=== PATIENT | male | born 1980 | race Caucasian/White ===

== ENCOUNTER 2020-06-06 17:48 | Emergency (ER) | payer OTHER, SELFPAY ==
[2020-06-06 17:49] VITALS: BP 149/101; PULSE 99; RESP 18; TEMP 37.1; O2SAT 98; BMI 38.0
--- NOTE | 2020-06-06 18:10 | CT_ITS ---
PROCEDURE: CT ABDOMEN PELVIS W CON CLINICAL INDICATION: LLQ pain, bleeding Left lower quadrant pain and bleeding COMPARISON: No exams were available for comparison TECHNIQUE: IV Contrast: 75ML OPTIRAY 350 Oral Contrast None Axial images obtained with sagittal and coronal reformats. All CT scans at the facility use one or more dose reduction, viz: automated exposure control, ma/kV adjustment per patient size (including targeted exams where dose is matched to indication, i.e. head), or iterative reconstruction technique. FINDINGS: LOWER THORAX: No acute finding ABDOMEN & PELVIS: There is diffuse fatty liver. There is some hyperdensity of the liver in the gallbladder fossa region and may be related to focal fatty sparing. Follow-up may confirm. The spleen, adrenal glands, pancreas, and kidneys show no acute finding. There is some cortical scarring involving the medial aspect of the left kidney. No intestinal obstruction or free air. No evidence of appendicitis. Scattered diverticula present without evidence of diverticulitis. There are few small Rebeca aortic lymph nodes. Small umbilical hernia is present containing fat. No acute bony findings.. IMPRESSION: 1. No acute abdominal or pelvic findings. 2. Hepatic steatosis with suspected areas of fatty sparing 3. Diverticulosis without diverticulitis Dictated by: Victoriano Huber MD 06/07/2020 06:09 Victoriano Huber MD in [place] 06/07/2020 06:09
--- NOTE | 2020-06-06 18:11 | HMH.EDGENADL ---
ED Disposition Clinical Impression: Diverticulosis GI bleed Qualifiers: GI bleed type/associated pathology: diverticulosis Qualified Code(s): K57.91 - Diverticulosis of intestine, part unspecified, without perforation or abscess with bleeding Disposition: Home, Self-Care Condition on Discharge: Good Instructions: DI for Diverticulosis Additional Instructions: You have been evaluated for blood per rectum, diagnosed with diverticulosis. Please take MiraLAX for soft bowel movements. Take docusate and senna if you have hard stools. Follow-up with new primary care doctor. Follow-up with gastroenterology for upper endoscopy and colonoscopy. Return to the emergency department if you have fevers, chills, nausea, vomiting, chest pain, palpitations, syncope. Referrals: PCP,Dyan [Primary Care Provider] - Silvia Hutchison APRN [Referring] - Time of Disposition: 19:27 - Critical Care Critical Care Time: No Attestation: On , the high probability of a clinically significant, sudden or life threatening deterioration of the following system(s) required my full and direct attention, intervention and personal management. The time I documented below is in addition to time spent performing reported procedures but includes the following listed in this critical care notation. Medical Decision Making - Medical Records Medical records reviewed: Yes: I reviewed the patient's medical records. - Obey Inquiry Pt receiving controlled substance: No Vital Signs: 06/06/20 17:49 Temperature 98.7 F Temperature Source Temporal Artery Scan Pulse Rate [Right] 99 H Respiratory Rate 18 Blood Pressure [Right Arm] 149/101 H Blood Pressure Mean [Right Arm] 117 02 Sat by Pulse Oximetry 98 - Lab Data Lab Results 06/06/20 18:10: Stool Occult Blood Positive A 06/06/20 18:15: WBC 8.7, RBC 5.83, Hgb 17.3, Hct 51.8, MCV 88.9, MCH 29.6, MCHC 33.3, RDW 13.7, Plt Count 244, MPV 8.4, Neut % (Auto) 58.5, Lymph % (Auto) 31.8, [place] % (Auto) 7.3, Eos % (Auto) 1.9, Baso % (Auto) 0.6, Neut # (Auto) 5.1, Lymph # (Auto) 2.8, [place] # (Auto) 0.6, Eos # (Auto) 0.2, Baso # (Auto) 0.1 06/06/20 18:15: Sodium 140, Potassium 4.2, Chloride 103, Carbon Dioxide 29, Anion Gap 12.2, BUN 12, Creatinine 0.70, Estimated Creat Clear 255, Estimated GFR 126, Est GFR ( Amer) 152, Glucose 113 H, Calcium 9.6, Total Bilirubin 0.6, AST 70 H, ALT 140 H, Alkaline Phosphatase 105, Total Protein 8.4 H, Albumin 4.7, Globulin 3.7 H, Albumin/Globulin Ratio 1.3 Result diagrams: 06/06/20 18:15 06/06/20 18:15 Orders (Tests/Meds): ED MEDICATIONS Discontinued Medications Generic Name Dose Route Start Last Admin Trade Name Rashadq PRN Reason Stop Dose Admin Ioversol 75 ml 06/06/20 19:03 06/06/20 19:05 Ioversol-350 (74%) 100ml Vial IV 06/06/20 19:04 75 ml ONCE ONE Administration Protocol Sodium Chloride 10 ml 06/06/20 19:03 06/06/20 19:05 Sodium Chloride 0.9% 10ml Syr (Rad Only) IV 06/06/20 19:04 10 ml ONCE ONE Administration ORDERS Category Date Time Status CT abdomen pelvis w con Stat Cat Scan 06/06/20 18:10 Taken Medical Decision Narrative: In summary this is a 40-year-old male presenting to the emergency department with rectal bleeding. Patient clinically stable on arrival. Slightly hypertensive and tachycardic, says that he is very nervous. Concern for internal hemorrhoid, external hemorrhoid, diverticular bleed, mass, ulcer. Will obtain CBC, CMP, Hemoccult, CT scan of the abdomen and pelvis. Laboratory results are generally unremarkable. No significant anemia. BUN is not elevated, doubt significant hemorrhage. CT scan of the abdomen and pelvis shows diverticulosis without evidence of diverticulitis. Also shows fatty liver. No mass or other surgical evidence of bleed. In the emergency department patient has not had a bowel movement or alberto blood per rectum. Counseled on laxatives and stool softeners. Given return precautio
[2020-06-06 18:23] LABS: Basophils # 0.1 K/mm3 (0-0.2); Basophils % 0.6 % (0.1-2.0); Eosinophils # 0.2 K/mm3 (0.0-0.4); Eosinophils % 1.9 % (0.1-12.0); Hematocrit 51.8 % (42.0-52.0); Hemoglobin 17.3 g/dL (14.1-18.0); Lymphocytes # 2.8 K/mm3 (0.7-4.5); Lymphocytes % 31.8 % (10-50); Mean Corpuscular HGB Conc 33.3 g/dL (31.8-35.4); Mean Corpuscular Hemoglobin 29.6 pg (27.0-31.2); Mean Corpuscular Volume 88.9 fl (80-94); Mean Platelet Volume 8.4 fl (7.4-10.4); Monocytes # 0.6 K/mm3 (0.1-1.0); Monocytes % 7.3 % (1.7-9.3); Neutrophils # 5.1 K/mm3 (1.8-7.8); Neutrophils % 58.5 % (37.0-80.0); Platelet Count 244 K/mm3 (142-424); Red Blood Count 5.83 M/mm3 (4.60-6.20); Red Cell Distribution Width 13.7 % (11.5-17.5); White Blood Count 8.7 K/mm3 (4.8-10.8)
[2020-06-06 18:26] LABS: Occult Blood,Stool Positive (Negative)
[2020-06-06 18:28] LABS: Chloride 103 mmol/L (98-107); Potassium 4.2 mmoL/L (3.5-5.1); Sodium 140 mmol/L (136-145)
[2020-06-06 18:31] LABS: Alanine Aminotransferase 140 U/L (12-78); Albumin Level 4.7 g/dl (3.5-5.0); Albumin/Globulin Ratio 1.3 (1.1-1.8); Alkaline Phosphatase 105 U/L (38-126); Anion Gap 12.2 mEq/L (5-15); Aspartate Amino Transferase 70 U/L (17-59); Bilirubin,Total 0.6 mg/dl (0.2-1.3); Blood Urea Nitrogen 12 mg/dl (9-20); Carbon Dioxide 29 mmol/L (22.0-30.0); Creatinine Clearance Estimated 255 mL/min (50-200); Estimated Glomerular Filt Rate 126 ml/min (>60); GFR (African American) 152 ML/MIN (>60); Globulin 3.7 g/dL (1.3-3.2); Total Protein,Serum 8.4 g/dl (6.3-8.2)
[2020-06-06 18:32] LABS: Calcium 9.6 mg/dl (8.4-10.2); Glucose 113 mg/dl (74-100)
[2020-06-06 19:37] VITALS: BP 146/86; PULSE 86; RESP 16; TEMP 37.1; O2SAT 98
== END 2020-06-06 19:41 | disposition home or self-care (01) ==
PROVIDERS: Emergency Provider Emergency Medicine
DX: K57.91 Diverticulosis of intestine, part unspecified, without perforation or abscess with bleeding (principal)
CPT/HCPCS: 74177; 80053; 82272; 85025; 99283; G0328; Q9967

== ENCOUNTER 2022-07-31 21:00 | Emergency (ER) | payer OTHER, SELFPAY ==
[2022-07-31 21:13] VITALS: BP 158/85; PULSE 87; RESP 16; TEMP 36.7; O2SAT 97; BMI 39.3
--- NOTE | 2022-07-31 22:06 | XR_ITS ---
PROCEDURE INFORMATION: Exam: XR Left Toe(s) Exam date and time: 07/31/2022 10:44 PM Age: 42 years old Clinical indication: Pain; Toes; Patient HX: Dropped skillet of 1st left toe; Additional info: Skillet vs toe TECHNIQUE: Imaging protocol: Radiologic exam of the Left toes. Views: Minimum 2 views. COMPARISON: No relevant prior studies available. FINDINGS: Bones/joints: No acute fracture. No dislocation. Soft tissues: Unremarkable. IMPRESSION: No fracture. If pain persists, suggest splinting and follow up radiographs in 7-10 days.
--- NOTE | 2022-07-31 22:30 | PC.NURSE ---
observed dr kebede during cauterization
--- NOTE | 2022-07-31 22:51 | HMH.EDLOEX ---
Discharge Plan Disposition Chief Complaint: Extremity Injury, Lower Prescriptions Prescriptions: No Action No Known Home Medications Referrals Follow up/Referrals: Provider,Referral, MD [Primary Care Provider] - See instructions Clinical Impressions Clinical Impression: Toe injury, Subungual hematoma Instructions Patient Instructions: Toe Sprain Discharge ED Provider: Eugene Candelario Lower Extremity Injury HPI General Chief Complaint: Extremity Injury, Lower Stated Complaint: AO 07/31 @1800 dropped skillet on left foot Time Seen by Provider: 07/31/22 22:51 Mode of Arrival: Family Vehicle Source of Information: Patient and Medical Record Limitations: No Limitations Description of Symptoms (Recalled from ER Triage Doc. by RN): Patient states he accidentally knocked his large cast iron skillet off the stove causing it to fall approx 3 feet to the floor, landing on his great toe on the left side; immediate discoloration and pain as a result. PMH: denies. PSH: denies. NKA. VSS. History of Present Illness HPI Narrative: acute lt great toe injury as skillet landed on toe this pm MD complaint: foot injury Onset (ago): hour(s) Injury: Left: foot Type of Injury: blunt Place: home Severity: moderate Exacerbating factors: weight bearing and palpation Context: direct blow Associated symptoms: swelling and able to partially bear weight Other symptoms: none Related Data Home Medications Medication Instructions Recorded Confirmed No Known Home Medications 07/31/22 07/31/22 Allergies Allergy/AdvReac Type Severity Reaction Status Date / Time No Known Allergies Allergy Verified 06/06/20 18:00 [facility] Disclaimer: The information contained in this section may have been updated after the patient was seen, as this information can be updated by other users. Social History Smoking Status: Smoker, status unknown alcohol intake: never current occupational status: employed Travel in the last 8 weeks: None ROS Obtained: Yes All systems reviewed & no additional complaints except as documented Physical Exam General General appearance: alert Head Head exam: normocephalic Eye Eye exam: Present PERRL and EOMI ENT ENT exam: Present mucous membranes moist Neck Neck exam: Present trachea midline Respiratory Respiratory exam: Absent respiratory distress Cardiovascular Cardiovascular exam: Present regular rate Expanded Lower Extremity Exam Left: Foot/toe exam: Present tenderness, swelling and subungual hematoma Neurovascular/Tendon exam: Absent pulse deficit Neurological Exam Neurological exam: Present alert, oriented X3 and CN II-XII intact Psychiatric Psychiatric exam: Present normal affect Skin Skin exam: Absent rash Medical Decision Making Medical Records Medical records reviewed: Yes I reviewed the patient's medical records. [place] Inquiry Pt receiving controlled substance: No Vital Signs: 07/31/22 21:13 Temperature 98.0 F Temperature Source Oral Pulse Rate [Right Brachial] 87 Respiratory Rate 16 Blood Pressure [Right Arm] 158/85 H Blood Pressure Mean [Right Arm] 109 Blood Pressure Source [Right Arm] Automatic Cuff Blood Pressure Position [Right Arm] Sitting 02 Sat by Pulse Oximetry 97 Oxygen Delivery Method Room Air Lab Data Lab results reviewed: Yes I reviewed the patient's lab results. Orders (Tests/Meds): ORDERS Category Date Time Status XR toe LT min 2V Stat Exams 07/31/22 22:06 Completed Radiology Data #1: Image(s): Foot/Toes Image Reviewed: Yes I have reviewed radiologist's interpretation Preliminary Findings: No Fracture Seen Medical Decision Narrative: pt with acute injury lt great toe with subungual hematoma - Procedures Nerve Block Nerve Block 1: Time out performed: Yes Local Anesthetic: lidocaine 1% Amount of anesthesia used (mL): 8 Side: Left Nerve Blocks: digit
[2022-07-31 23:51] VITALS: BP 137/87; PULSE 80; RESP 16; TEMP 36.7; O2SAT 97
== END 2022-07-31 23:53 | disposition home or self-care (01) ==
PROVIDERS: Emergency Provider Emergency Medicine
DX: S90.212A Contusion of left great toe with damage to nail, initial encounter (principal); S93.602A Unspecified sprain of left foot, initial encounter; W20.8XXA Other cause of strike by thrown, projected or falling object, initial encounter; Y92.9 Unspecified place or not applicable
CPT/HCPCS: 10140; 73660; 99283

== ENCOUNTER 2023-05-13 15:51 | Emergency (ER) | payer OTHER, SELFPAY ==
[2023-05-13 15:54] VITALS: BP 158/78; PULSE 88; RESP 18; TEMP 36.7; O2SAT 97; BMI 38.0
--- NOTE | 2023-05-13 16:03 | PC.NURSE ---
covid/flu swab sent to lab
[2023-05-13 16:05] LABS: Coronavirus 19, PCR Not Detected (NotDetected); Influenza A, PCR Not Detected (NotDetected); Influenza B, PCR Not Detected (NotDetected)
--- NOTE | 2023-05-13 16:09 | CT_ITS ---
FINAL REPORT TECHNIQUE: Thin section axial images were obtained from skull base to vertex without contrast. Coronal reconstruction images were obtained from the axial data. Exam was performed using dose reduction technique. CLINICAL HISTORY: headache worse in AM, frontal COMPARISON: None FINDINGS: There is no mass effect or midline shift. There is no hydrocephalus. There is no intracranial hemorrhage. The posterior fossa is without acute abnormality. The basilar cisterns are preserved. The soft tissues are without acute abnormality. No acute osseous abnormality is identified. IMPRESSION: No acute intracranial abnormality. Reviewed, Interpreted and Dictated by Irene Green MD Transcribed by Tigist Arzate Authenticated and . [facility]
--- NOTE | 2023-05-13 16:10 | HMH.EDGENADL ---
Discharge Plan Disposition Patient Disposition: Home, Self-Care Chief Complaint: Weakness Prescriptions Prescriptions: No Action No Known Home Medications Referrals Follow up/Referrals: Provider,Ratna, [Primary Care Provider] - See instructions Jarrod Hutchinson DO [Staff Physician] - See instructions Activity Restrictions/Add. Instructions Additional Instructions/Restrictions: At this time was felt you are safe to be discharged home. If new or worsening symptoms please do not hesitate to return the emergency department. Please call Dr. Hutchinson to establish care as soon as you are able. Clinical Impressions Clinical Impression: Myalgia, Elevated CK, Headache Discharge ED Provider: Michael Little General Adult HPI General Chief complaint: Weakness Stated complaint: dizzy, body aches, chills/fever, weakness Time Seen by Provider: 05/13/23 16:02 History of Present Illness HPI narrative: Patient is a 43-year-old male with no chronic medical conditions who presents emergency department for evaluation of multiple complaints. Approximately 4 weeks ago patient contracted COVID for which he experienced diffuse myalgias and weakness. Symptoms largely resolved and subsequently over the last 2 weeks patient has had significant global weakness and body aches limiting his activities of daily living. He has a frontal headache that is worse in the morning and dissipates throughout the day without intervention. No vision changes, no chest pain, no other acute complaints at this time. Related Data Home Medications Medication Instructions Recorded Confirmed No Known Home Medications 07/31/22 07/31/22 Allergies Allergy/AdvReac Type Severity Reaction Status Date / Time No Known Allergies Allergy Verified 06/06/20 18:00 [facility] Disclaimer: The information contained in this section may have been updated after the patient was seen, as this information can be updated by other users. Social History (Updated 07/31/22 @ 23:42 by Eugene Candelario MD) Smoking Status: Never smoker alcohol intake: never current occupational status: employed Travel in the last 8 weeks: None ROS Obtained: Yes Systems reviewed as appropriate & no additional complaints except as documented Physical Exam General General appearance: alert and in no apparent distress Head Head exam: atraumatic and normocephalic Eye Eye exam: Present PERRL and EOMI ENT ENT exam: Present mucous membranes moist Neck Neck exam: Present normal inspection Chest Chest inspection: Present normal inspection and symmetric chest wall rise Respiratory Respiratory exam: Present normal lung sounds bilaterally; Absent respiratory distress Cardiovascular Cardiovascular exam: Present regular rate, normal rhythm and other (No pitting edema bilateral lower extremities) Abdominal Exam Abdominal exam: Present soft; Absent tenderness Extremities Exam Extremities exam: Present normal inspection Neurological Exam Neurological exam: Present alert and CN II-XII intact; Absent motor sensory deficit Psychiatric Psychiatric exam: Present normal affect Skin Skin exam: Present warm and dry Medical Decision Making Obey Inquiry Pt receiving controlled substance: No Vital Signs: 05/13/23 15:54 05/13/23 16:31 05/13/23 17:01 Temperature 98.1 F Temperature Source Oral Pulse Rate 92 H 88 Pulse Rate [Right Radial] 88 Respiratory Rate 18 Blood Pressure 150/84 H 141/81 H Blood Pressure [Right Arm] 158/78 H Blood Pressure Mean [Right Arm] 104 02 Sat by Pulse Oximetry 97 97 94 L Oxygen Delivery Method Room Air Room Air Room Air Lab Data Lab Results 05/13/23 15:58: SARS-CoV-2 (PCR) Not detected, Influenza A Untype (PCR) Not detected, Influenza Type B (PCR) Not detected 05/13/23 16:30: WBC 7.0, RBC 5.58, Hgb 16.3, Hct 49.8, MCV 89.1, MCH 29.2, MCHC 32.8, RDW 13.7, Plt Count 220, MPV 8.7, Neut % (Auto) 57.5, Lymph % (Auto) 32.2
--- NOTE | 2023-05-13 16:12 | XR_ITS ---
FINAL REPORT CLINICAL HISTORY: weakness, soa COMPARISON: None FINDINGS: A portable view of the chest was obtained. Cardiac and mediastinal silhouettes are within normal limits. The lungs are clear. There is no pleural effusion or pneumothorax. IMPRESSION: No acute process on this portable exam. Reviewed, Interpreted and Dictated by Irene Green MD Transcribed by Tigist Arzate Authenticated and [facility]
[2023-05-13 16:31] VITALS: BP 150/84; PULSE 92; O2SAT 97
--- NOTE | 2023-05-13 16:35 | ECG_ITS ---
APPROVED REPORT Exam: Resting ECG HR:82 bpm ECG Measurements Heart Rate 82 AXES DE 189 P 61 QRSd 104 QRS 52 QT 347 T 18 QTc 385 Conclusion SINUS RHYTHM PROBABLE INFERIOR MYOCARDIAL INFARCTION , PROBABLY OLD [35 ms Q WAVE IN II/aVF] ABNORMAL ECG UNCONFIRMED REPORT Electronically signed by : Lg Gonzalez MD 05/14/2023 17:19:04
[2023-05-13 16:44] LABS: Basophils % 0.5 % (0.1-2.0); Eosinophils # 0.2 K/mm3 (0.0-0.4); Eosinophils % 2.9 % (0.1-12.0); Hematocrit 49.8 % (42.0-52.0); Hemoglobin 16.3 g/dL (14.1-18.0); Lymphocytes # 2.3 K/mm3 (0.7-4.5); Lymphocytes % 32.2 % (10-50); Mean Corpuscular HGB Conc 32.8 g/dL (31.8-35.4); Mean Corpuscular Hemoglobin 29.2 pg (27.0-31.2); Mean Corpuscular Volume 89.1 fl (80-94); Mean Platelet Volume 8.7 fl (7.4-10.4); Monocytes # 0.5 K/mm3 (0.1-1.0); Neutrophils % 57.5 % (37.0-80.0); Platelet Count 220 K/mm3 (142-424); Red Blood Count 5.58 M/mm3 (4.60-6.20); Red Cell Distribution Width 13.7 % (11.5-17.5)
[2023-05-13 16:45] LABS: Alanine Aminotransferase 74 U/L (12-78); Albumin Level 4.2 g/dl (3.5-5.0); Albumin/Globulin Ratio 1.2 (1.1-1.8); Alkaline Phosphatase 89 U/L (38-126); Anion Gap 12.3 mEq/L (5-15); Aspartate Amino Transferase 50 U/L (17-59); Bilirubin,Total 0.5 mg/dl (0.2-1.3); Blood Urea Nitrogen 19 mg/dl (9-20); Calcium 9.3 mg/dl (8.4-10.2); Carbon Dioxide 29 mmol/L (22.0-30.0); Chloride 104 mmol/L (98-107); Creatine Kinase 225 U/L (55-170); Creatinine Clearance Estimated 192 mL/min (50-200); Estimated Glomerular Filt Rate 93 ml/min (>60); GFR (African American) 112 ML/MIN (>60); Globulin 3.5 g/dL (1.3-3.2); Glucose 127 mg/dl (74-100); Potassium 4.3 mmoL/L (3.5-5.1); Sodium 141 mmol/L (136-145); Total Protein,Serum 7.7 g/dl (6.3-8.2)
[2023-05-13 17:01] VITALS: BP 141/81; PULSE 88; O2SAT 94
[2023-05-13 17:16] LABS: Thyroid Stimulating Hormone 1.41 uIU/mL (0.465-4.68)
[2023-05-13 18:24] VITALS: BP 151/87; PULSE 84; RESP 18; TEMP 36.6; O2SAT 95
== END 2023-05-13 18:26 | disposition home or self-care (01) ==
PROVIDERS: Emergency Provider Emergency Medicine
DX: R51.9 Headache, unspecified (principal); R53.1 Weakness
CPT/HCPCS: 70450; 71045; 80053; 82550; 83735; 84443; 85025; 87636; 93005; 96374; 99285; J0131

== ENCOUNTER → 2023-06-11 12:44 | Outpatient (CLI) | payer OTHER, SELFPAY ==
[2023-06-11 13:45] VITALS: PULSE 81; PULSE 83
[2023-06-11 14:49] LABS: Lactic Acid 1.5 mmol/L (0.7-2.1)
[2023-06-11 15:17] LABS: Erythrocyte Sedimentation Rate 6 mm/hr (0-15)
[2023-06-11 15:23] LABS: Chol/HDL Ratio 8.9 (1-3.5); Cholesterol 196 mg/dl (140-200); HDL Cholesterol 22 mg/dl (40-60); Triglycerides 322 mg/dl (30-150); VLDL Cholesterol 64 mg/dL (0-40)
[2023-06-11 15:35] LABS: Direct LDL Cholesterol 124.89 mg/dL (100-129)
[2023-06-11 15:55] LABS: Thyroid Stimulating Hormone 0.81 uIU/mL (0.465-4.68)
[2023-06-11 17:25] LABS: D-Dimer 0.62 ug/mL (0.0-0.5)
== END ==
PROVIDERS: PCP Nurse Practitioner Family; Visit Provider Nurse Practitioner Family
DX: G93.32 Myalgic encephalomyelitis/chronic fatigue syndrome (principal); R06.02 Shortness of breath; U09.9 Post COVID-19 condition, unspecified; M79.10 Myalgia, unspecified site; R03.0 Elevated blood-pressure reading, without diagnosis of hypertension
CPT/HCPCS: 36415; 80061; 83605; 84443; 85378; 85651; 86140; 94060; 94640

== ENCOUNTER 2023-06-12 17:20 | Emergency (ER) | payer OTHER, SELFPAY ==
[2023-06-12] VITALS (8 sets, daily range): BP systolic 135–165; BP diastolic 79–100; PULSE 79–87; RESP 17–18; TEMP 37; O2SAT 96–98; BMI 40.0
--- NOTE | 2023-06-12 18:32 | CT_ITS ---
PROCEDURE INFORMATION: Exam: CTA Chest With Contrast Exam date and time: 06/12/2023 7:07 PM Age: 43 years old Clinical indication: Dyspnea; Additional info: Dyspnea, elevated dimer from yesterday TECHNIQUE: Imaging protocol: Computed tomographic angiography of the chest with contrast. Exam focused on the arteries. 3D rendering (Not supervised by radiologist): MIP and/or 3D reconstructed images were created by the technologist. Radiation optimization: All CT scans at this facility use at least one of these dose optimization techniques: automated exposure control; mA and/or kV adjustment per patient size (includes targeted exams where dose is matched to clinical indication); or iterative reconstruction. Contrast material: ISOVUE; Contrast volume: 70 ml; Contrast route: INTRAVENOUS (IV); REPORTING DATA: Count of CT and Cardiac NM exams in prior 12 months: This patient has received [address] and 0 known cardiac nuclear medicine studies in the 12 months prior to the current study. COMPARISON: CR XR CHEST PORTABLE 05/13/2023 4:34 PM FINDINGS: Pulmonary arteries: Normal. No pulmonary emboli. Aorta: Unremarkable. No aortic aneurysm. No aortic dissection. Lungs: Mild dependent atelectasis in the lungs. No consolidation. Calcified granuloma at the left lung apex. Pleural spaces: Unremarkable. No pneumothorax. No pleural effusion. Heart: Unremarkable. No cardiomegaly. No pericardial effusion. Lymph nodes: Unremarkable. No enlarged lymph nodes. Liver: Mild hepatic steatosis. Bones/joints: Mild thoracic spine degenerative change. Soft tissues: Unremarkable. IMPRESSION: 1. No pulmonary embolism. 2. No acute findings.
--- NOTE | 2023-06-12 18:35 | HMH.EDGENADL ---
Discharge Plan Disposition Patient Disposition: Home, Self-Care Prescriptions Prescriptions: No Action multivitamin Tablet 1 tab PO DAILY fluoxetine 40 mg capsule 40 mg PO DAILY vitamin B complex [B Complex-Vitamin B12] Tablet 1 tab PO DAILY fluoxetine 20 mg capsule 20 mg PO DAILY Qty: 30 2RF Referrals Follow up/Referrals: Lissett Meadows APRN [Primary Care Provider] - See instructions Jacey Keyes MD [Staff Physician] - See instructions (for a sleep study ) Jarrod Rivers MD [Staff Physician] - See instructions Activity Restrictions/Add. Instructions Additional Instructions/Restrictions: No acute cardiopulmonary emergency noted please follow-up with Dr. Rivers for further cardiovascular evaluation as well as with Dr. Keyes for an outpatient sleep study and continue to discuss your chronic fatigue with your primary care physician. Clinical Impressions Clinical Impression: Chronic fatigue, Exertional dyspnea, Obesity Discharge ED Provider: Jose Aquino General Adult HPI General Chief complaint: Recheck/Abnormal Lab/Rx Stated complaint: sent by phy, critical labs and SOA Time Seen by Provider: 06/12/23 18:08 Mode of Arrival: Ambulatory Source of Information: Patient Limitations: No Limitations Description of Symptoms (Recalled from ER Triage Doc. by RN): Patient states he had a routine follow up appointment with his PCP yesterday and they fish bloodwork. States he got a phone call today stating that his ddimer was elevated and that he needed to come to the er for a ct scan of his chest. History of Present Illness HPI narrative: Patient is a 43-year-old male presenting with chronic fatigue over the last several months. He states that he was diagnosed with COVID along with everyone else in his household at the end of March but has not improved. His description of not improving includes dyspnea on exertion and just severe significant fatigue. 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 States that anxiety and stress have not worsened significantly as of late. Denies any ongoing fevers or chills. Denies any lower extremity swelling hemoptysis history DVT or PE or any dyspnea outside of any exertion including right now. No significant chest pain right now. Patient has not had a comprehensive cardiac evaluation in the past. The reason he comes to the emergency department today with the subacute symptoms is that he was at his primary care doctor yesterday ordered a D-dimer and it was elevated at 0.6 and they sent him to the emergency department for a CT PE. Related Data Home Medications Medication Instructions Recorded Confirmed fluoxetine 40 mg capsule 40 mg PO DAILY 06/02/23 06/02/23 multivitamin 1 tab PO DAILY 06/02/23 06/02/23 vitamin B complex (B 1 tab PO DAILY 06/02/23 06/02/23 Complex-Vitamin B12 tablet) Previous Rx's Medication Instructions Recorded fluoxetine 20 mg capsule 20 mg PO DAILY #30 caps 06/02/23 Allergies Allergy/AdvReac Type Severity Reaction Status Date / Time No Known Allergies Allergy Verified 06/02/23 11:35 [facility] Disclaimer: The information contained in this section may have been updated after the patient was seen, as this information can be updated by other users. Medical History (Updated 06/12/23 @ 18:40 by Jose Aquino MD) Gastric ulcer Social History (Updated 06/02/23 @ 11:39 by Kristopher Amezcua LPN) Smoking Status: Never smoker alcohol intake: current substance use type: denies use current occupational status: employed Travel in the last 8 weeks: I
[2023-06-12 18:39] LABS: Basophils % 0.4 % (0.1-2.0); Eosinophils # 0.2 K/mm3 (0.0-0.4); Eosinophils % 2.3 % (0.1-12.0); Hematocrit 46.3 % (42.0-52.0); Hemoglobin 16.4 g/dL (14.1-18.0); Lymphocytes % 28.7 % (10-50); Mean Corpuscular HGB Conc 35.4 g/dL (31.8-35.4); Mean Corpuscular Hemoglobin 31.3 pg (27.0-31.2); Mean Corpuscular Volume 88.6 fl (80-94); Mean Platelet Volume 8.8 fl (7.4-10.4); Monocytes # 0.4 K/mm3 (0.1-1.0); Neutrophils # 4.4 K/mm3 (1.8-7.8); Neutrophils % 62.6 % (37.0-80.0); Platelet Count 210 K/mm3 (142-424); Red Blood Count 5.22 M/mm3 (4.60-6.20); Red Cell Distribution Width 13.8 % (11.5-17.5)
[2023-06-12 18:42] LABS: Chloride 101 mmol/L (98-107); Potassium 3.9 mmoL/L (3.5-5.1); Sodium 138 mmol/L (136-145)
[2023-06-12 18:44] LABS: Alanine Aminotransferase 79 U/L (12-78); Alkaline Phosphatase 109 U/L (38-126); Aspartate Amino Transferase 57 U/L (17-59); Bilirubin,Total 0.3 mg/dl (0.2-1.3); Blood Urea Nitrogen 16 mg/dl (9-20); Creatinine Clearance Estimated 260 mL/min (50-200); Estimated Glomerular Filt Rate 124 ml/min (>60); GFR (African American) 150 ML/MIN (>60)
[2023-06-12 18:45] LABS: Albumin Level 4.5 g/dl (3.5-5.0); Albumin/Globulin Ratio 1.4 (1.1-1.8); Anion Gap 9.9 mEq/L (5-15); Carbon Dioxide 31 mmol/L (22.0-30.0); Globulin 3.3 g/dL (1.3-3.2); Glucose 122 mg/dl (74-100); Magnesium 1.9 mg/dl (1.6-2.3); Phosphorous 3.6 mg/dl (2.5-4.5); Total Protein,Serum 7.8 g/dl (6.3-8.2)
--- NOTE | 2023-06-12 18:58 | ECG_ITS ---
APPROVED REPORT Exam: Resting ECG HR:78 bpm ECG Measurements Heart Rate 78 AXES VT 187 P 44 QRSd 100 QRS 39 QT 356 T 35 QTc 389 Conclusion SINUS RHYTHM NORMAL ECG UNCONFIRMED REPORT Electronically signed by : Lg Gonzalez MD 06/13/2023 18:58:51
[2023-06-12 19:10] LABS: Troponin I < 0.01 ng/ml (0.00-0.034)
[2023-06-12 19:16] LABS: Thyroid Stimulating Hormone 3.12 uIU/mL (0.465-4.68)
--- NOTE | 2023-06-12 20:20 | PC.NURSE ---
Dr. Aquino talking with patient
== END 2023-06-12 20:31 | disposition home or self-care (01) ==
PROVIDERS: Emergency Provider Student in an Organized Health Care Education/Training Program; PCP Nurse Practitioner Family
DX: R53.82 Chronic fatigue, unspecified (principal); R06.09 Other forms of dyspnea; E66.9 Obesity, unspecified
CPT/HCPCS: 71275; 80053; 83735; 83880; 84100; 84443; 84484; 85025; 93005; 96360; 99284; Q9967

== ENCOUNTER → 2023-06-15 15:33 | Outpatient (CLI) | payer OTHER, SELFPAY | PROVIDERS: PCP Nurse Practitioner Family; Visit Provider Internal Medicine | DX: R03.0 Elevated blood-pressure reading, without diagnosis of hypertension (principal); R06.09 Other forms of dyspnea; R94.31 Abnormal electrocardiogram [ECG] [EKG] | CPT/HCPCS: 93270 ==

== ENCOUNTER 2023-06-25 12:07 | Outpatient (CLI) | payer OTHER, SELFPAY ==
[2023-06-25] VITALS (10 sets, daily range): BP systolic 119–180; BP diastolic 66–94; PULSE 60–80; RESP 16–18; TEMP 36.3–36.8; O2SAT 94–100; BMI 40.0
--- NOTE | 2023-06-25 12:11 | CT_ITS ---
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 A noncontrast coronary calcium scan was performed. A CT attenuation threshold of 130 Hounsfield units (HU) was used for the detection of calcium in contiguous voxels of 1 sq mm in area to be counted as individual lesions. Bolus tracking in the ascending aorta with a threshold of 180 HU was performed. Immediately afterwards, ECG synchronized cardiac CT was then performed from the cardiac base to apex using retrospective gating with ECG tube current modulation. A total of 85 mL of Isovue 370 mg/mL contrast medium was administered at 5 mL/sec followed by a saline flush using a biphasic injection protocol. A tube voltage of 120 KVp was used. The patient received the following medications prior to the cardiac CT. 100 mg of oral metoprolol 30 mg of intravenous metoprolol 0.8 mg of sublingual nitroglycerin The average heart rate at the time of acquisition was 60 bpm and regular. Image Reconstruction Transaxial images were reconstructed at 0.67 mm slide thickness. Data was reviewed interactively on an advanced workstation capable of 2 and 3-dimensional displays in all conventional reconstruction formats, including multiplanar reformations, maximum intensity projections, curved multiplanar reformations, and volume rendered reconstructions. When applicable, selected routine images describing the relevant coronary anatomy and pathology were saved and sent to PACS. Complications None Technical Quality Overall image quality was good. Coronary artery opacification was adequate. Total DLP (Dose-Length Product) is 1447.7 mGy-cm. The reported value represents the total of one or more individual components during the CT acquisition of this date and at this time, and as such, the same value may appear in more than one CT report depending on the interpreting/reporting physicians. COMPARISON None FINDINGS CT Coronary Calcium Scoring LMA (Left Main Artery) = 0 LAD (Left Anterior Descending) = 0 LCX (Left Coronary Circumflex) = 0 RCA (Right Coronary Artery) = 0 Total Calcium Score = 0 using the AJ-130 method. The interpretation of the calcium heart score is based on the following continuum*: 0 = no calcified plaque detected (risk of coronary artery disease is very low ??? less than 5%) 1-10 = calcium detected in extremely minimal levels (risk of coronary diseases is still low ??? less than 10%) 11-100 = mild levels of plaque detected with certainty (mild or minimal narrowing of heart arteries is likely) 101-400 = definite,at least moderate levels of plaque detected (relatively high risk of a heart attack within 3-5 years) >401-999 = extensive levels of plaque detected (high risk of heart attack, high levels of vascular disease are present, high likelihood of at least one significant coronary narrowing) *The calcium heart score quantifies the burden of coronary calcification/plaque in the coronary arteries. The calcium heart score is not able to evaluate the presence or burden of non-calcified (i.e. soft) plaque. There is no identifiable calcification in the aortic valve, mitral annulus or mitral valve, pericardium, or myocardium. Coronary CT Angiography Coronaries have normal origin and proximal course. The coronary arterial system is right dominant. Note: Stenosis is reported as maximum percentage diameter stenosis. Quantitative Stenosis Grading: Left Main (LM): The left main originates normally from the left sinus of Valsalva. 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 The LM is patent with
--- NOTE | 2023-06-25 14:25 | PC.NURSE ---
Pharmacy does not have Ivabradine that was ordered by Dr Davidson. Called office to update, MD to call when out of pt room.
--- NOTE | 2023-06-25 14:52 | PC.NURSE ---
Donna Josue RN spoke with Jordan AGGARWAL and was given go ahead on CTA even though HR is still upper 60's. Pt taken to CT per W/C.
== END 2023-06-25 15:55 | disposition home or self-care (01) ==
PROVIDERS: PCP Nurse Practitioner Family; Visit Provider Internal Medicine
DX: R94.31 Abnormal electrocardiogram [ECG] [EKG] (principal); R06.09 Other forms of dyspnea; R03.0 Elevated blood-pressure reading, without diagnosis of hypertension
CPT/HCPCS: 75571; 75574; Q9967

== ENCOUNTER → 2023-06-26 12:53 | Outpatient (CLI) | payer OTHER, SELFPAY ==
--- NOTE | 2023-06-26 12:56 | CA_ITS ---
APPROVED REPORT EXAM: Comprehensive 2D, Doppler, and color-flow Echocardiogram Development Technician: Maggie Cai, RCS, RVS Ht: 6 ft 0 in Wt: 381lbs BSA: 2.80 BP: 160/90 mmHg Indications: anomalous RCA, SOB, ABN EKG, HTN 2D Dimensions IVSd 1.19 cm LVEF (Visual) 67.70 % PWd 1.29 cm LA Volume 74.70 mL LVDd 5.10 cm LA Volume Index [id number] mL/m2 (M/F) 16-34 LVDs 3.17 cm Aortic Root 3.37 cm Left Atrium 4.11 cm LVOT 2.07 cm (M/F) 1.5-2.5 M-Mode Dimensions RVDd 2.91 cm (0.9-2.6) LA Diam 4.15 cm (1.9-4.0) LVDd 5.14 cm (3.5-5.7) Ao Diam 3.28 cm (2.0-3.7) LVDs 2.76 cm (3.5-5.7) IVSd 1.36 cm (0.6-1.1) PWd 1.32 cm (0.6-1.1) EF (Teich) 77.40% EPSs 0.50 cm FS 46.30% EDV (Teich) 126.10 mL TAPSE 3.23 (<1.7) ESV (Teich) 28.50 mL LV Diastology E Decel Time 173.00 (160-240 msec) E/A Ratio 1.34 MED E' 6.40 (< 7 cm/sec) MED A' 10.00 cm/s E'/MED E' Ratio 13.78 (>14) LAT E' 9.20 (<10 cm/sec) LAT A' 11.90 cm/s E/LAT E' Ratio 9.59 (>14) Aortic Valve LVOT Max 103.00 (70-110 cm/s) LVOT VTI 21.11 cm AoV Peak Roberto. 124.00 (50-130 cm/s) AO Peak GR. 6.10 mmHg AO Mean GR. 3.00 (<5 mmHg) AO VTI 24.24 (18-25 cm) MAIA (VTI) 2.93 (2.5-4.5 cm2) Mitral Valve MV A Velocity 66.00 (40-130 cm/s) E/A Ratio 1.34 MV Decel. Time 173.00 (160-240 ms) Pulmonary Valve DC End VMAX 163.00 cm/s Tricuspid Valve TR P. Velocity 138.00 cm/s RAP Estimate 10.00 mmHg RVSP 17.70 mmHg Left Ventricle The left ventricle is normal size. The left ventricular systolic function is normal. The left ventricular ejection fraction is within the normal range. There is increased LV wall thickness (IVSd 1.4-1.5 cm). There is normal LV segmental wall motion. The left ventricular diastolic function is normal. LVEF is 55%. Right Ventricle Right ventricle is mildly dilated. The right ventricular systolic function is normal. Atria The left atrium size is normal. The right atrium size is normal. There is no Doppler evidence of interatrial shunt. Aortic Valve The aortic valve opens well. There is no aortic valvular stenosis. No aortic regurgitation is present. Mitral Valve The mitral valve is normal in structure. No evidence of mitral valve stenosis. Trace mitral regurgitation. Tricuspid Valve The tricuspid valve leaflets are thin and pliable. Trace tricuspid regurgitation. RVSP is normal. Pulmonic Valve The pulmonary valve is normal in structure. Mild pulmonic regurgitation. Great Vessels The aortic root is normal in size. The ascending aorta is normal in size. IVC is normal in size and collapses >50% with inspiration. Pericardium There is no pericardial effusion. Other Information Study Quality: Fair Conclusion Normal biventricular systolic function. Increased LV wall thickness (IVSd 1.4-1.5 cm). Mildly dilated RV. No significant valvular stenosis or regurgitation. Due to asymmetic increase in LV wall thickness, further evaluation for HCM is recommended with cardiac MRI (HCM protocol). Electronically signed by : Mary Ann Davidson MD 06/30/2023 19:59:32
== END ==
PROVIDERS: PCP Nurse Practitioner Family; Visit Provider Internal Medicine
DX: R06.09 Other forms of dyspnea (principal); R03.0 Elevated blood-pressure reading, without diagnosis of hypertension; R94.31 Abnormal electrocardiogram [ECG] [EKG]
CPT/HCPCS: 93306

== ENCOUNTER 2023-06-27 11:08 | Emergency (ER) | payer OTHER, SELFPAY ==
[2023-06-27] VITALS (7 sets, daily range): BP systolic 136–170; BP diastolic 77–104; PULSE 67–79; RESP 13–21; TEMP 37.1; O2SAT 95–99; BMI 40.0
--- NOTE | 2023-06-27 11:10 | ECG_ITS ---
APPROVED REPORT Exam: Resting ECG HR:77 bpm ECG Measurements Heart Rate 77 AXES CO 175 P 40 QRSd 94 QRS 50 QT 346 T 24 QTc 377 Conclusion SINUS RHYTHM NORMAL ECG UNCONFIRMED REPORT Electronically signed by : Lg Gonzalez MD 06/28/2023 08:40:04
[2023-06-27 11:33] LABS: Basophils % 0.4 % (0.1-2.0); Chloride 101 mmol/L (98-107); Eosinophils # 0.2 K/mm3 (0.0-0.4); Eosinophils % 2.5 % (0.1-12.0); Hematocrit 46.5 % (42.0-52.0); Hemoglobin 16.4 g/dL (14.1-18.0); Lymphocytes # 1.9 K/mm3 (0.7-4.5); Lymphocytes % 32.7 % (10-50); Mean Corpuscular HGB Conc 35.3 g/dL (31.8-35.4); Mean Corpuscular Hemoglobin 30.9 pg (27.0-31.2); Mean Corpuscular Volume 87.7 fl (80-94); Mean Platelet Volume 8.4 fl (7.4-10.4); Monocytes # 0.4 K/mm3 (0.1-1.0); Monocytes % 6.3 % (1.7-9.3); Neutrophils # 3.4 K/mm3 (1.8-7.8); Neutrophils % 58.1 % (37.0-80.0); Platelet Count 211 K/mm3 (142-424); Red Blood Count 5.31 M/mm3 (4.60-6.20); Red Cell Distribution Width 13.7 % (11.5-17.5); Sodium 138 mmol/L (136-145); White Blood Count 5.8 K/mm3 (4.8-10.8)
[2023-06-27 11:36] LABS: Alanine Aminotransferase 87 U/L (12-78); Albumin Level 4.5 g/dl (3.5-5.0); Albumin/Globulin Ratio 1.4 (1.1-1.8); Alkaline Phosphatase 104 U/L (38-126); Aspartate Amino Transferase 56 U/L (17-59); Bilirubin,Total 0.4 mg/dl (0.2-1.3); Blood Urea Nitrogen 17 mg/dl (9-20); Carbon Dioxide 31 mmol/L (22.0-30.0); Creatinine Clearance Estimated 228 mL/min (50-200); Estimated Glomerular Filt Rate 106 ml/min (>60); GFR (African American) 128 ML/MIN (>60); Globulin 3.3 g/dL (1.3-3.2); Total Protein,Serum 7.8 g/dl (6.3-8.2)
[2023-06-27 11:37] LABS: Calcium 9.1 mg/dl (8.4-10.2); Glucose 114 mg/dl (74-100)
[2023-06-27 11:46] LABS: NT Pro Brain Natriuretic Pep. 68.2 pg/mL (0-125)
--- NOTE | 2023-06-27 11:48 | HMH.EDGENADL ---
Discharge Plan Disposition Patient Disposition: Home, Self-Care Chief Complaint: Chest Pain Prescriptions Prescriptions: No Action multivitamin Tablet 1 tab PO DAILY fluoxetine 40 mg capsule 40 mg PO DAILY vitamin B complex [B Complex-Vitamin B12] Tablet 1 tab PO DAILY fluoxetine 20 mg capsule 20 mg PO DAILY Referrals Follow up/Referrals: Provider,Referral, MD [Referring] - See instructions Activity Restrictions/Add. Instructions Additional Instructions/Restrictions: Call your family doctor to establish care for this visit to the emergency department and schedule follow-up within 48 hours to ensure improvement. If you have any worsening of your condition or any other concerning signs or symptoms, return to the emergency department or your primary care doctor for further evaluation. Continue following with your family doctor and cardiology regarding these symptoms Clinical Impressions Clinical Impression: Pleurisy Discharge ED Provider: Efraín Acosta General Adult HPI General Chief complaint: Chest Pain Stated complaint: CP Time Seen by Provider: 06/27/23 11:11 Mode of Arrival: Ambulatory Source of Information: Patient Limitations: No Limitations Description of Symptoms (Recalled from ER Triage Doc. by RN): pt to ed c/o center chest pain that started aprox 1w ago. pt states the pain became worse today and has radiated to bilateral shoulders and into the left side of his jaw today. pt reports mild dizziness. pt states all of this started after i had covid in march. History of Present Illness HPI narrative: 43-year-old male history of long COVID with chronic chest pain presenting with chest pain. 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 He states I have been more aware of my chest today, and noticed that he was having chest pain on the left side of his chest radiates to his right side of his jaw and bilateral shoulders. Denies nausea vomiting, shortness of breath more so than usual, neurologic deficits, or any other concerns. It goes away on its own, nothing in particular makes it worse. Related Data Home Medications Medication Instructions Recorded Confirmed fluoxetine 40 mg capsule 40 mg PO DAILY Depression 06/02/23 06/25/23 multivitamin 1 tab PO DAILY Supplement 06/02/23 06/25/23 vitamin B complex (B 1 tab PO DAILY Supplement 06/02/23 06/25/23 Complex-Vitamin B12 tablet) fluoxetine 20 mg capsule 20 mg PO DAILY Depression 06/25/23 06/25/23 Allergies Allergy/AdvReac Type Severity Reaction Status Date / Time No Known Allergies Allergy Verified 06/25/23 12:25 [facility] Disclaimer: The information contained in this section may have been updated after the patient was seen, as this information can be updated by other users. Medical History (Updated 06/27/23 @ 15:28 by Efraín Acosta MD) Abnormal ECG Gastric ulcer Family History (Updated 06/25/23 @ 12:28 by Valery Hope RN) Other Family history of hypertension Social History (Updated 06/25/23 @ 12:28 by Valery Hope RN) Smoking Status: Never smoker alcohol intake: current substance use type: denies use current occupational status: employed Travel in the last 8 weeks: Inside the [place] ROS Obtained: Yes All systems reviewed & no additional complaints except as documented Physical Exam General General appearance: alert and in no apparent distress Head Head exam: atraumatic and normocephalic Eye Eye exam: Present normal appearance, PERRL and EOMI ENT ENT exam: Present mucous membranes moist Neck Neck exam: Present normal inspection, full ROM and trachea midline Respiratory Respiratory exam: Present normal lung sounds bilaterally; Absent respiratory distress, wheezes, stridor, accessory muscle use or prolonged expiratory phase Cardiovascular Cardiovascular exam: Present regular rate and normal rhythm Abdominal
[2023-06-27 11:51] LABS: Troponin I < 0.01 ng/ml (0.00-0.034)
--- NOTE | 2023-06-27 13:09 | PC.NURSE ---
Assumed patient care; rounded on patient warm blanket provided. Call light within reach
--- NOTE | 2023-06-27 13:16 | XR_ITS ---
PROCEDURE INFORMATION: Exam: XR Chest Exam date and time: 06/27/2023 1:38 PM Age: 43 years old Clinical indication: Pain; Other: Cp in center of chest; Additional info: Cp raditating to neck TECHNIQUE: Imaging protocol: Radiologic exam of the chest. Views: 1 view. Total images: 1 COMPARISON: CR XR CHEST PORTABLE 05/13/2023 4:34 PM FINDINGS: Lungs: Unremarkable. No consolidation. Pleural spaces: Unremarkable. No pleural effusion. No pneumothorax. Heart/Mediastinum: Unremarkable. No cardiomegaly. Bones/joints: Unremarkable. IMPRESSION: No acute findings.
[2023-06-27 14:32] LABS: Troponin I < 0.01 ng/ml (0.00-0.034)
== END 2023-06-27 15:39 | disposition home or self-care (01) ==
PROVIDERS: Emergency Provider Emergency Medicine; PCP Nurse Practitioner Family
DX: R07.9 Chest pain, unspecified (principal)
CPT/HCPCS: 71045; 80053; 83880; 84484; 85025; 93005; 96361; 96374; 99285

== ENCOUNTER → 2023-07-03 11:00 | Outpatient (CLI) | payer OTHER, SELFPAY ==
--- NOTE | 2023-07-03 11:04 | NM_ITS ---
APPROVED REPORT Exam: Nuclear Stress Test Indication: chest pain..soa..palpitations..syncope..fatigue..dizziness Patient Location: Outpatient Stress Tech: Kellie Barcenas [place] Tech:Grace Marina ARRT RT(R)(N) Ht: 6 ft 0 in Wt: 295 lbs HR: 85 bpm BP: 145/85 mmHg BSA: 2.51 m2 TID: 1.11 History: chest pain..soa..palpitations..syncope..fatigue..dizziness Procedure: Patient exercised on Alonso protocol 7:30 minutes and sec, resting heart rate 85 bpm, resting blood pressure 145/85 mmHg, with exercise maximum heart rate achived was 155 bpm which is 87 % of the maximum predicted heart rate and blood pressure was 196/80 mmHg. Test was stopped due to fatigue. Patient denied any complaint of chest pain. Patient has Average exercise capacity, achieved 10.1 METs of workload on treadmill, the blood pressure response to exercise was normal. Cardiac Stress and Resting SPECT Images: Cardiac Stress and Resting SPECT images were obtained using technetium 99m Myoview 32.8 mCi stress and 10.54 mCi at rest. Resting and stress imaging in supine and prone positions demonstrate no evidence of fixed or reversible perfusion defects. Gated imaging demonstrates normal global and regional LV systolic function. LVEF is calculated at 57%. Conclusion: No evidence of fixed or reversible perfusion defects. Gated imaging demonstrates normal global and regional LV systolic function. LVEF is calculated at 57%. Electronically signed by : Mary Ann Davidson MD 07/13/2023 12:44:41
--- NOTE | 2023-07-03 13:05 | CA_ITS ---
APPROVED REPORT Exam: Exercise Treadmill Technologist: Kellie Cerda, Ht: 6 ft 0 in Wt: 301 lbs BSA: 2.53 m2 HR: 81 bpm BP: 151/83 mmHg Rhythm: NSR Indications: CP, Abn Echo Medical History Medications: Vit B,,,,, Fluoxetine,,,,, MVI,,,,, Stress Test Details Test: Alonso HR Resting HR: 85 bpm Max Heart Rate (APMHR): 178 bpm Max HR Achieved: 155 bpm Target HR (85% APMHR): 151 bpm % of APMHR: 87 Recovery HR: 94 bpm HR response to stress: Normal HR response to stress BP Resting BP: 145.0/85.0 mmHg Max BP: 196.0/80.0 mmHg Recovery BP: 144.0/84.0 mmHg BP response to stress: Normal blood pressure response to stress. ECG Resting ECG: NSR Stress ECG: < 0.[address] depression Arrhythmia: None Recovery ECG: Return to baseline within 3 minutes of recovery Recovery Arrhythmia: None Clinical Exercise duration: 07:30 min Highest Stage Achieved: III Exercise capacity: 10.1 METs Overall Exercise Capacity for Age: Average Stress ECG Conclusion The patient was able to exercise for a total of 7 minutes, 30 seconds. He achieved a total of 10.1 METS. He has an average exercise capacity compared to age and sex matched peers. He has normal HR and BP response to exercise. Max HR: 155 % of PM: 87% Max BP:196/80 METs: 10.1 Test stopped due to: SOA, leg fatigue Symptoms: No CP, lightheadedness or near syncope. Arrhythmias/Ectopy: None ST-T Changes: Normal ST response to exercise. Conclusion: Average exercise capacity. Normal GXT. Myoview images reported separately. Test Summary REST . . . . . . . Sitting REST . . . . . . . Standing REST 04:47 0.0 0.0 85 . 145/ 85 . . Stage 1 01:00 10.0 1.7 112 . . . . Stage 1 02:00 10.0 1.7 117 . . . . Stage 1 03:00 10.0 1.7 120 . 186/ 80 . . Stage 2 01:00 12.0 2.5 129 . . . . Stage 2 02:00 12.0 2.5 135 . 196/ 80 . . Stage 2 03:00 12.0 2.5 140 . 196/ 80 . . Stage 3 . . . . . . . Myoview Injected Stage 3 01:00 14.0 3.4 151 . . . . Stage 3 01:30 14.0 3.4 155 . . . Stop exercise at 07:30 RECOVERY 01:00 0.0 0.0 132 . . . . RECOVERY 02:00 0.0 0.0 105 . . . . RECOVERY 03:00 0.0 0.0 102 . 171/ 95 . . RECOVERY 04:00 0.0 0.0 98 . 171/ 95 . . RECOVERY 05:00 0.0 0.0 94 . 144/ 84 . . RECOVERY 05:17 0.0 0.0 96 . 144/ 84 . . Electronically signed by : Mary Ann Davidson MD 07/13/2023 12:43:26
== END ==
LOC: RAD 11:01
PROVIDERS: PCP Nurse Practitioner Family; Visit Provider Internal Medicine
DX: R06.09 Other forms of dyspnea (principal); R07.89 Other chest pain; R93.1 Abnormal findings on diagnostic imaging of heart and coronary circulation; R94.31 Abnormal electrocardiogram [ECG] [EKG]
CPT/HCPCS: 78452; 93017; 93018; A9502

== ENCOUNTER → 2023-07-27 12:26 | Outpatient (CLI) | payer OTHER, SELFPAY ==
--- NOTE | 2023-07-27 13:10 | MR_ITS ---
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 Software platform sequences were performed using the Siemens naaptol MR B19 platform. A set of three-plane, low-resolution, large [id number] localizers were initially acquired. Then axial, coronal, sagittal TrueFISP, as well as axial HASTE images, were obtained. These were followed by gated TrueFISP breathold cinematic sequences obtained in the short axis with 8 mm slices and 2 mm gaps, 2-chamber (vertical long axis), 3-chamber, 4-chamber (horizontal long axis). A bolus of contrast was injected intravenously with first-pass sequences obtained in the short axis and four-chamber planes. After approximately 10 minutes, a TI wiring inspector sequence was performed to determine the optimal TI time. Using the optimized TI time, delayed contrast enhancement segmented inversion???recovery TurboFLASH sequences were obtained in the short axis, 2-chamber, 3-chamber, and 4-chamber projections. 2D-velocity phase mapping was performed. Functional parameters were calculated by offline analysis on an independent workstation ([employer] Imaging Platform, [employer]). Contrast: ProHance??? (Gadoteridol) FINDINGS MORPHOLOGY AND FUNCTION Left ventricle: The left ventricle cavity is small. The indexed left ventricular end-diastolic volume (LVEDVi) is 45 ml/m2 (reference range 57-105 ml/m2 in males, 56-96 ml/m2 in females). Normal left ventricular systolic function is present. There is increased left ventricular wall thickness in the basal septal LV wall (maximum 14.8 mm noted in the basal septum). There are no regional wall motion abnormalities noted. LVEF is calculated at 59.6% (reference range 57-77%). Right ventricle: The right ventricle is normal in size. The indexed right ventricular end-diastolic volume (RVEDVi) is 66 ml/m2 (reference range 61-121 ml/m2 in males, 48-112 ml/m2 in females). Normal right ventricular systolic function is present. RVEF is calculated at 52.0 % (reference range 52-72% in males, 51-71% in females). Atria: The left atrium is normal in size. The maximum indexed left atrial volume is 23 ml/m2 (reference range 26-52 ml/m2 in males, 27-53 ml/m2 in females). The right atrium is normal in size. The maximum indexed right atrial volume is 23 ml/m2 (reference range 18-90 ml/m2). Aorta: The diameter of the aortic annulus is normal, measuring 25 mm (coronal view reference range 21-30 mm in males, 19-27 mm in females). The diameter of the aortic sinus is normal, measuring 36 mm (coronal view reference range 25-42 mm in males, 24-36 mm in females). The diameter of the sinotubular junction is normal, measuring 30 mm (coronal view reference range 18-32 mm in males, 18-28 mm in females). The diameters of the ascending and descending thoracic aorta are normal. Main pulmonary artery: The main pulmonary artery diameter is normal. Pericardium: The pericardial thickness is normal. The pericardial thickness measures 1.4 cm (normal < 4.0 cm). There is no pericardial effusion. VALVES The valvular morphologies in the visualized sequences appear normal. There is no significant valvular stenosis or regurgitation of the mitral, aortic, tricuspid, or pulmonic valve noted visually. Systolic anterior motion of the mitral valve is not visualized. Ratio of pulmonary to systemic flow, Qp:Qs ratio = 1.1 (normal < or = 1.2), demonstrating no evidence of hemodynamically significant shunt. TISSUE CHARACTERIZATION Resting Perfusion: Normal myocardial blood flow at rest. No evidence of resting hypoperfusion. Myocardial Fibros
== END ==
PROVIDERS: PCP Nurse Practitioner Family; Visit Provider Internal Medicine
DX: R07.89 Other chest pain (principal); R93.1 Abnormal findings on diagnostic imaging of heart and coronary circulation; R94.31 Abnormal electrocardiogram [ECG] [EKG]
CPT/HCPCS: 75561; A9576

== ENCOUNTER 2023-09-08 11:38 | Emergency (ER) | payer OTHER, SELFPAY ==
[2023-09-08 11:38] VITALS: BP 98/64; PULSE 85; RESP 18; TEMP 36.6; O2SAT 95; BMI 41.9
--- NOTE | 2023-09-08 11:42 | ECG_ITS ---
APPROVED REPORT Exam: Resting ECG HR:80 bpm ECG Measurements Heart Rate 80 AXES NJ 189 P 51 QRSd 98 QRS 42 QT 338 T 35 QTc 374 Conclusion SINUS RHYTHM NORMAL ECG UNCONFIRMED REPORT Electronically signed by : Lg Gonzalez MD 09/11/2023 14:47:47
[2023-09-08 11:48] VITALS: BP 107/72; PULSE 80; RESP 12; O2SAT 97
[2023-09-08 12:01] VITALS: BP 102/61; PULSE 80; RESP 15; O2SAT 97
[2023-09-08 12:30] VITALS: BP 111/65; PULSE 76; RESP 22; O2SAT 94
--- NOTE | 2023-09-08 12:31 | ED_ITS ---
Discharge Plan Disposition Patient Disposition: Home, Self-Care Condition: Good Prescriptions Prescriptions: No Action valsartan-hydrochlorothiazide 320-25 mg tablet 1 tab PO DAILY Qty: 90 3RF fluoxetine 40 mg capsule 80 mg PO DAILY 30 Days Qty: 60 11RF multivitamin Tablet 1 tab PO DAILY vitamin B complex [B Complex-Vitamin B12] Tablet 1 tab PO DAILY Referrals Follow up/Referrals: Lissett Meadows APRN [Primary Care Provider] - See instructions Activity Restrictions/Add. Instructions Additional Instructions/Restrictions: Please follow-up closely with your primary care provider. Return to the emergency department for new or worsening symptoms. Clinical Impressions Clinical Impression: Vasovagal syncope Instructions Patient Instructions: DI for Syncope in Adults (Fainting) Discharge ED Provider: Madonna Durand General Adult HPI General Chief complaint: Syncope Stated complaint: syncope Time Seen by Provider: 09/08/23 11:41 Mode of Arrival: Wheelchair Limitations: No Limitations Description of Symptoms (Recalled from ER Triage Doc. by RN): PT BROUGHT FROM PCP FOR SYNCOPAL EPISODE WITH CONVULSING AFTER BLOOD DRAW. PT ARRIVES A&O X 4. NO DISTRESS. PT REPORTS NAUSEA AND EAR PRESSURE AFTER EPISODE. PT REPORTS NORMAL ACTIVITY BEFORE BLOOD DRAW. PT DIAPHORETIC AND PALE. INTERACTIVE WITH STAFF. History of Present Illness HPI narrative: This patient is a 43-year-old male with a history and obesity and multiple chronic generalized symptoms for which she is being worked up by cardiology as well as primary care provider with concern that he could potentially have long COVID syndrome presented to the emergency department for evaluation with concern for syncopal episode. Patient was having a significant mount of blood drawn by his PCPs office just prior to arrival when he began to feel lightheaded and passed out. They noted concern for possible convulsing with the episode, but the episode lasted just a few seconds and he had no postictal period. He woke up and was back to his baseline. He states that he initially felt a little bit nauseated and weak, but he has rapidly started feeling much better. He initially arrived diaphoretic and pale with low blood pressure, however it normalized very quickly and he perked up almost immediately. He denies any concerns or complaints at this time and nothing was out of the ordinary for him today. Related Data Home Medications Medication Instructions Recorded Confirmed multivitamin 1 tab PO DAILY Supplement 06/02/23 09/08/23 vitamin B complex (B 1 tab PO DAILY Supplement 06/02/23 09/08/23 Complex-Vitamin B12 tablet) Previous Rx's Medication Instructions Recorded valsartan 320 1 tab PO DAILY #90 tabs 09/02/23 mg-hydrochlorothiazide 25 mg tablet fluoxetine 40 mg capsule 80 mg PO DAILY Depression 30 days 09/08/23 #60 caps Allergies Allergy/AdvReac Type Severity Reaction Status Date / Time No Known Allergies Allergy Verified 09/08/23 09:56 [facility] Disclaimer: The information contained in this section may have been updated after the patient was seen, as this information can be updated by other users. Medical History Abnormal ECG Gastric ulcer Family History Other Family history of hypertension Social History Smoking Status: Never smoker alcohol intake: current substance use type: denies use current occupational status: employed Travel in the last 8 weeks: [place] ROS Obtained: Yes All systems reviewed & no additional complaints except as documented Physical Exam General General appearance: alert and in no apparent distress Head Head exam: atraumatic and normocephalic Eye Eye exam: Present normal appearance, PERRL and EOMI ENT ENT exam: Present normal exam, normal oropharynx, mucous membranes moist and normal external ear exam Neck Neck exam: Present normal inspection, full ROM and trachea midline; Absent tenderness Chest Chest inspection: Present normal inspection and symmetric chest wall rise; Absent tenderness Respiratory Respiratory exam: Present normal lung sounds bilaterally; Absent respiratory distress, wheezes, stridor or accessory muscle use Cardiovascular Cardiovascular exam: Present regular rate and normal rhythm Abdominal Exam Abdominal exam: Present soft; Absent distention, tenderness or guarding Extremities Exam Extremities exam: Present normal inspection, full ROM and normal capillary refill; Absent tenderness or edema Back Exam Back exam: Present normal inspection and full ROM; Absent tenderness Neurological Exam Neurological exam: Present alert, oriented X3, CN II-XII intact and normal gait; Absent motor sensory deficit Psychiatric Psychiatric exam: Present normal affect and normal mood Skin Skin exam: Present warm and dry Medical Decision Making Medical Records Medical records reviewed: Yes I reviewed the patient's medical records. Obey Inquiry Pt receiving controlled substance: No Vital Signs: 09/08/23 11:38 09/08/23 11:48 09/08/23 12:01 Temperature 97.9 F Temperature Source Oral Pulse Rate 80 80 Pulse Rate [Apical] 85 Respiratory Rate 18 12 15 Blood Pressure 107/72 L 102/61 L Blood Pressure [Right Arm] 98/64 L Blood Pressure Mean 79 78 Blood Pressure Mean [Right Arm] 75 Blood Pressure Source Blood Pressure Source [Right Arm] Automatic Cuff Blood Pressure Position Blood Pressure Position [Right Arm] Sitting 02 Sat by Pulse Oximetry 95 97 97 Oxygen Delivery Method Room Air 09/08/23 12:30 09/08/23 13:22 Temperature 98.2 F Temperature Source Oral Pulse Rate 76 87 Pulse Rate [Apical] Respiratory Rate 22 18 Blood Pressure 111/65 128/74 Blood Pressure [Right Arm] Blood Pressure Mean 73 Blood Pressure Mean [Right Arm] Blood Pressure Source Automatic Cuff Blood Pressure Source [Right Arm] Blood Pressure Position Sitting Blood Pressure Position [Right Arm] 02 Sat by Pulse Oximetry 94 L Oxygen Delivery Method Room Air Lab Data Lab results reviewed: Yes I reviewed the patient's lab results. ECG Data Tracing #1: I reviewed this ECG and interpreted as documented below: Normal sinus rhythm with a ventricular rate of [address] changes concerning for ischemia. Normal axis and intervals. ECG initial impression date: 09/08/23 ECG initial impression time: 11:44 Medical Decision Narrative: In summary, this patient is a 43-year-old male presenting to the Emergency Department for evaluation of syncopal episode that happened during a blood draw. Differential diagnoses considered include but are not limited to vasovagal syncope, orthostatic hypotension, seizure, dysrhythmia. Ruling out the most morbid conditions drove assessment. On exam, the patient is well-appearing with no concerns or complaints at this time. He quickly returned to normal and has no neurologic deficits or cardiopulmonary issues. EKG is reassuring. Vitals are normal on cardiac telemetry. I considered obtaining basic lab work, however I do not feel this is indicated as likely would not chemical cell changer. I feel the most likely diagnosis is vasovagal syncope patient classic history and presentation. Will continue to monitor the patient and assess his ability to tolerate p.o. intake. On subsequent reassessment, the patient remains resting comfortably on cardiac telemetry with reassuring vital signs. No concerns or complaints. He states that he is feeling well. Given this, feel that he is appropriate for discharge with diagnosis of vasovagal syncope in the setting of blood draw. He is given strict return precautions, instructions for close follow-up with his primary care provider, and he was discharged in stable condition after all questions were answered. Critical Care Critical Care Time Critical Care Time: No
--- NOTE | 2023-09-08 13:14 | PC.NURSE ---
Dr Durand in with pt
[2023-09-08 13:22] VITALS: BP 128/74; PULSE 87; RESP 18; TEMP 36.8; O2SAT 95
== END 2023-09-08 13:26 | disposition home or self-care (01) ==
PROVIDERS: Emergency Provider Emergency Medicine; PCP Nurse Practitioner Family
DX: R55 Syncope and collapse (principal); R11.0 Nausea; R61 Generalized hyperhidrosis; R53.1 Weakness
CPT/HCPCS: 93005; 99283

== ENCOUNTER 2023-09-08 15:02 | Outpatient (CLI) | payer OTHER, SELFPAY ==
[2023-09-08 16:04] LABS: C-Reactive Protein 4.6 mg/L (0-4)
[2023-09-08 16:19] LABS: T4 (Thyroxine) 6.8 ug/dl (5.53-11.0)
[2023-09-08 16:32] LABS: Thyroid Stimulating Hormone 1.14 uIU/mL (0.465-4.68)
[2023-09-08 16:36] LABS: Ferritin 244 ng/ml (17.9-464)
[2023-09-08 16:52] LABS: Vitamin B12 774 pg/mL (239-931)
[2023-09-09 08:19] LABS: Triiodothyronine (T3) Free 3.5 pg/mL (2.0-4.4)
[2023-09-09 16:21] LABS: EBV Ab VCA, IgM <36.0 U/mL (0.0-35.9); EBV Nuclear Antigen Ab, IgG 21.7 U/mL (0.0-17.9)
[2023-09-12 08:19] LABS: Lyme B. burgdorferi PCR Blood Negative (Negative)
[2023-09-14 21:33] LABS: Magnesium,RBC 5.4 mg/dL (3.7-7.0)
[2023-09-16 10:51] LABS: Antinuclear Antibodies (ANA) Negative; Triiodothyronine (T3) Reverse 11.6
== END 2023-09-08 23:59 ==
LOC: LAB.DROPOF 15:02
PROVIDERS: PCP Nurse Practitioner Family; Visit Provider Nurse Practitioner Family
DX: R07.89 Other chest pain; R06.09 Other forms of dyspnea; M62.81 Muscle weakness (generalized); R79.89 Other specified abnormal findings of blood chemistry; G93.32 Myalgic encephalomyelitis/chronic fatigue syndrome; E66.9 Obesity, unspecified; Z68.41 Body mass index [BMI] 40.0-44.9, adult; U09.9 Post COVID-19 condition, unspecified; Z79.899 Other long term (current) drug therapy
CPT/HCPCS: 82306; 82607; 82728; 83735; 84436; 84443; 84481; 84482; 86038; 86140; 86225; 86235; 86664; 86665; 87476

== ENCOUNTER 2024-02-04 10:48 | Emergency (ER) | payer OTHER, SELFPAY ==
[2024-02-04 10:55] VITALS: BP 121/71; PULSE 83; RESP 20; TEMP 37.3; O2SAT 97; BMI 38.5
--- NOTE | 2024-02-04 11:11 | ED_ITS ---
Discharge Plan Disposition Patient Disposition: Home, Self-Care Condition: Good Prescriptions Prescriptions: New amoxicillin 875 mg tablet 875 mg PO Q12H Qty: 20 0RF benzonatate 100 mg capsule 100 mg PO TIDP PRN (Reason: Cough) Qty: 30 0RF methylprednisolone 4 mg Tablets,Dose Pack 4 mg PO DIRECTED 6 Days Qty: 21 0RF Rx Instructions: Take 1 pack as directed for 6 days No Action valsartan-hydrochlorothiazide 320-25 mg tablet 1 tab PO DAILY Qty: 90 3RF fluoxetine 40 mg capsule 80 mg PO DAILY 30 Days Qty: 60 11RF amlodipine 10 mg tablet 10 mg PO DAILY Qty: 90 3RF Referrals Follow up/Referrals: Lissett Meadows APRN [Primary Care Provider] - See instructions Activity Restrictions/Add. Instructions Additional Instructions/Restrictions: Drink plenty of fluids. Take tylenol for pain or fever. Take the medications as directed. Follow up with your regular doctor. GO TO THE ER FOR ANY WORSENING SYMPTOMS Clinical Impressions Clinical Impression: Sinusitis Instructions Patient Instructions: Sinusitis, DI for Sinusitis, Benzonatate, Me thylprednisolone, Amoxicillin Discharge ED Provider: Bryant Peters [facility] [place], [place] General Stated complaint: head congestion cough Mode of Arrival: Ambulatory Source of Information: Patient Limitations: No Limitations Time Seen by Provider: 02/04/24 11:11 Description of Symptoms (Recalled from Triage Doc. by RN): PATIENT C/O SINUS DRAINAGE, COUGH, AND SNEEZING X 4 DAYS HEENT Symptoms (Recalled from RN notes): Yes Resp Symptoms (Recalled from RN notes): Yes Skin Symptoms (Recalled from RN notes): No MS Symptoms (Recalled from RN notes): No Functional Status (Recalled from RN notes): WNL History of Present Illness Provider Complaint: He states that for the past 4 days he has had worsening sinus congestion, ear pain, and sore throat. Related Data Previous Rx's Medication Instructions Recorded valsartan 320 1 tab PO DAILY #90 tabs 09/02/23 mg-hydrochlorothiazide 25 mg tablet fluoxetine 40 mg capsule 80 mg (2 x 40 mg) PO DAILY 09/08/23 Depression 30 days #60 caps amlodipine 10 mg tablet 10 mg PO DAILY #90 tabs 11/16/23 amoxicillin 875 mg tablet 875 mg PO Q12H #20 tabs 02/04/24 benzonatate 100 mg capsule 100 mg PO TIDP PRN Cough #30 caps 02/04/24 methylprednisolone 4 mg tablets in 4 mg PO DIRECTED 6 days #21 tabs 02/04/24 a dose pack Allergies Allergy/AdvReac Type Severity Reaction Status Date / Time No Known Allergies Allergy Verified 12/14/23 10:04 Worker's Comp Is this a Worker's Comp case?: No [facility] Disclaimer: The information contained in this section may have been updated after the patient was seen, as this information can be updated by other users. Medical History [place] (obstructive sleep apnea) Abnormal ECG Gastric ulcer Family History Other Family history of hypertension Social History Smoking Status: Never smoker alcohol intake: current alcohol intake frequency: a few times a month substance use type: denies use current occupational status: employed Travel in the last 8 weeks: [place] the [place] ROS Obtained: Yes All systems reviewed & no additional complaints except as documented Constitutional Constitutional: Reports poor appetite Eyes Eyes: Reports system reviewed and no additional complaints, except as documented ENT Ears, Nose, Mouth, and Throat: Reports as per HPI Cardiovascular Cardiovascular: Reports system reviewed and no additional complaints, except as documented and Denies chest pain Respiratory Respiratory: Denies shortness of breath, Denies chest congestion, Reports cough, Denies stridor and Denies wheezing Gastrointestinal Gastrointestingal: Reports system reviewed and no additional complaints, except as documented; Denies abdominal pain, diarrhea or vomiting Musculoskeletal Musculoskeletal: Reports system reviewed and no additional complaints, except as documented and Denies arthralgias Integumentary/Breasts Skin/Breast: Reports system reviewed and no additional complaints, except as documented and Denies rash Neurologic Neurologic: Denies paresthesias Allergic/Immunologic Allergic/Immunologic: Denies wheezing Physical Exam General General appearance: alert and in no apparent distress Eye Eye exam: Present normal appearance, PERRL and EOMI ENT ENT exam: Present mucous membranes moist and normal external ear exam Expanded ENT Exam External ear exam: Present normal external inspection TM/Canal exam: Bilateral TM: erythema and bulging Nose exam: Absent sinus tenderness Nasal speculum exam: Bilateral: normal Mouth exam: Present normal external inspection; Absent drooling Teeth exam: Present normal inspection Throat exam: Present tonsillar erythema and tonsillomegaly Neck Neck exam: Present normal inspection, full ROM and trachea midline; Absent tenderness, lymphadenopathy or thyromegaly Chest Chest inspection: Present normal inspection and symmetric chest wall rise; Absent tenderness or rash Respiratory Respiratory exam: Present normal lung sounds bilaterally; Absent respiratory distress, wheezes, stridor or accessory muscle use Cardiovascular Cardiovascular exam: Present regular rate, normal rhythm and normal heart sounds Abdominal Exam Abdominal exam: Present soft; Absent distention, tenderness, guarding, rebound or rigidity Extremities Exam Extremities exam: Present normal inspection, full ROM and normal capillary refill; Absent tenderness or calf tenderness Back Exam Back exam: Present normal inspection and full ROM; Absent tenderness Neurological Exam Neurological exam: Present alert and oriented X3 Psychiatric Psychiatric exam: Present normal affect and normal mood Skin Skin exam: Present warm, dry, intact and normal color Lymphatic Lymphatic Findings: no adenopathy Medical Decision Making Medical Records Medical records reviewed: No I reviewed the patient's medical records. Obey Inquiry Pt receiving controlled substance: No Vital Signs: 02/04/24 10:55 Temperature 99.2 F Temperature Source Oral Pulse Rate [Left Brachial] 83 Respiratory Rate 20 Blood Pressure [Left Arm] 121/71 Blood Pressure Mean [Left Arm] 87 Blood Pressure Source [Left Arm] Automatic Cuff Blood Pressure Position [Left Arm] Sitting 02 Sat by Pulse Oximetry 97 Oxygen Delivery Method Room Air
[2024-02-04 11:52] VITALS: BP 121/71; PULSE 83; RESP 20; TEMP 37.3; O2SAT 97
== END 2024-02-04 11:56 | disposition home or self-care (01) ==
PROVIDERS: Emergency Provider Nurse Practitioner Family; PCP Nurse Practitioner Family
DX: J01.90 Acute sinusitis, unspecified (principal); H92.03 Otalgia, bilateral; R07.0 Pain in throat; R09.81 Nasal congestion
CPT/HCPCS: 99204; 99212; G0463

== ENCOUNTER 2024-03-16 11:16 | Outpatient (CLI) | payer OTHER, SELFPAY ==
[2024-03-16 12:05] LABS: Semen Viscosity Normal (Normal); Sperm Count 0 mil/mm3 (20-160); Volume,Semen 5.8 ml (2.0-5.0); WBCs,Semen Trace
== END 2024-03-16 23:59 | disposition home or self-care (01) ==
PROVIDERS: PCP Nurse Practitioner Family; Visit Provider Nurse Practitioner Family
DX: Z98.52 Vasectomy status (principal)
CPT/HCPCS: 89320

== ENCOUNTER 2024-06-27 11:08 | Outpatient (CLI) | payer OTHER, SELFPAY ==
--- NOTE | 2024-06-27 11:17 | CA_ITS ---
APPROVED REPORT EXAM: Comprehensive 2D, Doppler, and color-flow Echocardiogram Chief Talent Officer: Lorena Alexandre CRT Ht: 6 ft 0 in Wt: 287lbs BSA: 2.48 BP: 124/79 mmHg Indications: Abnormal ECG, Shortness of Breath, Hypertension/HDD, CM, LVH,[place] 2D Dimensions LA Volume 56.30 mL LA Volume Index 22.20 mL/m2 (M/F) 16-34 M-Mode Dimensions RVDd 3.30 cm (0.9-2.6) LA Diam 3.95 cm (1.9-4.0) LVDd 4.59 cm (3.5-5.7) LVDs 2.73 cm (3.5-5.7) IVSd 1.74 cm (0.6-1.1) PWd 0.80 cm (0.6-1.1) EF (Teich) 71.30% FS 40.50% EDV (Teich) 96.80 mL TAPSE 2.35 (<1.7) ESV (Teich) 27.80 mL LV Diastology E Decel Time 283 (160-240 msec) E/A Ratio 1.00 MED A' 11.00 cm/s LAT A' 15.70 cm/s Aortic Valve AO Peak GR. 7.80 mmHg Mitral Valve MV A Velocity 68.0 (40-130 cm/s) E/A Ratio 1.00 Pulmonary Valve PV Peak Velocity 128.0 (50-150 cm/s) Tricuspid Valve TR P. Velocity 159.00 cm/s RAP Estimate 10.00 mmHg RVSP 20.10 mmHg Left Ventricle The left ventricle is normal size. The left ventricular systolic function is normal. The left ventricular ejection fraction is within the normal range. There is normal left ventricular wall thickness. There is normal LV segmental wall motion. The left ventricular diastolic function is normal. LVEF is 55%. Right Ventricle The right ventricle is normal size. The right ventricular systolic function is normal. Atria The left atrium size is normal. The right atrium size is normal. There is no Doppler evidence of interatrial shunt. Aortic Valve Aortic valve opens well. There is no aortic valvular stenosis. No aortic regurgitation is present. Mitral Valve The mitral valve is normal in structure. No evidence of mitral valve stenosis. There is no mitral valve regurgitation noted. Tricuspid Valve Tricuspid valve is grossly normal in structure and function. Trace tricuspid regurgitation. There is insufficient TR jet to estimate RVSP. Pulmonic Valve The pulmonary valve is normal in structure. Trace pulmonic regurgitation. Great Vessels The aortic root is normal in size. The ascending aorta is normal in size. IVC is normal in size and collapses >50% with inspiration. Pericardium There is no pericardial effusion. Will Other Information Study Quality: Adequate Conclusion Normal biventricular systolic function. No significant valvular stenosis or regurgitation. Electronically signed by : Mary Ann Davidson MD 06/27/2024 23:38:44
== END 2024-06-27 23:59 | disposition home or self-care (01) ==
LOC: RT 11:08
PROVIDERS: PCP Nurse Practitioner Family; Visit Provider Physician Assistant
DX: I51.7 Cardiomegaly (principal); R93.1 Abnormal findings on diagnostic imaging of heart and coronary circulation; R03.0 Elevated blood-pressure reading, without diagnosis of hypertension; R06.09 Other forms of dyspnea; R94.31 Abnormal electrocardiogram [ECG] [EKG]
CPT/HCPCS: 93306

== ENCOUNTER 2024-11-05 11:54 | Emergency (ER) | payer OTHER, SELFPAY ==
[2024-11-05 12:08] VITALS: BP 146/89; PULSE 90; RESP 16; TEMP 36.8; O2SAT 99; BMI 39.3
[2024-11-05 12:30] VITALS: BP 140/74; PULSE 88; RESP 18; O2SAT 100
[2024-11-05] MEDS: LIDOCAINE 1% W/EPI 1:100,000 20ML VIAL 10 ML SQ (12:49)
[2024-11-05] MEDS: TET/DIPHTH/PERT-ADULT 0.5ML SYRINGE 0.5 ML IM (12:53)
--- NOTE | 2024-11-05 13:05 | ED_ITS ---
<Statement entered by Jose Aquino MD - 11/05/24 13:43> I was consulted by the SKYLER, and we discussed the complexity of the problems being addressed. I approved the treatment and management plan for this patient's care in the emergency department, thus performing a substantive portion of the medical decision making. Jose Aquino MD, ANNA, FACEP Discharge Plan Disposition Patient Disposition: Home, Self-Care Condition: Good Prescriptions Prescriptions: No Action amlodipine 10 mg tablet 10 mg PO DAILY Qty: 90 3RF valsartan-hydrochlorothiazide 320-25 mg tablet 1 tab PO DAILY Qty: 90 3RF cholecalciferol (vitamin D3) 1,250 mcg (50,000 unit) capsule 1,250 mcg PO WEEKLY Referrals Follow up/Referrals: Lissett Meadows APRN [Primary Care Provider] - See instructions Activity Restrictions/Add. Instructions Additional Instructions/Restrictions: Hace sutures removed in 7 days. Keep dry if possible. Clinical Impressions Clinical Impression: Laceration Instructions Patient Instructions: DI for Laceration Repair Print Language Print Language: Danish Discharge ED Provider: Jose Aquino General Adult HPI General Chief complaint: Wound/Laceration Stated complaint: [id number] to nose Time Seen by Provider: 11/05/24 12:19 Mode of Arrival: Family Vehicle Source of Information: Patient and Medical Record Description of Symptoms (Recalled from ER Triage Doc. by RN): Pt c/o nasal bridge laceration after a tree limb hit him in the face while trimming trees. States the limb was at leat 3 in diameter of limb. No LOC. Denies any n/v, vision changes, or trouble walking. History of Present Illness HPI narrative: This is a 44-year-old male who presents today for complaint of laceration to his nasal bridge after a tree limb hit him prior to arrival today. It hit him while he was trying to cut it down. He had no loss of consciousness. He denies any vision changes, nausea, vomiting or headache. He says he became shaky when he arrived to the ER but otherwise he feels fine now. He is not up-to-date on his tetanus. No other problems or concerns. Related Data Home Medications ?Medication ?Instructions ?Recorded ?Confirmed cholecalciferol (vitamin D3) 1,250 1,250 mcg PO WEEKLY 03/14/24 11/05/24 mcg (50,000 unit) capsule Previous Rx's ?Medication ?Instructions ?Recorded amlodipine 10 mg tablet 10 mg PO DAILY #90 tabs 09/30/24 valsartan 320 1 tab PO DAILY #90 tabs 09/30/24 mg-hydrochlorothiazide 25 mg tablet Allergies Allergy/AdvReac Type Severity Reaction Status Date / Time No Known Allergies Allergy Verified 09/30/24 13:50 [facility] Disclaimer: The information contained in this section may have been updated after the patient was seen, as this information can be updated by other users. Medical History Abnormal ECG Gastric ulcer Left ventricular hypertrophy [place] (obstructive sleep apnea) Family History Other Family history of hypertension Social History Smoking Status: Never smoker alcohol intake: current alcohol intake frequency: a few times a month substance use type: denies use current occupational status: employed Travel in the last 8 weeks: [place] the [place] Have you lived/traveled outside US in past 30 days?: No Contact w/someone who lives/traveled outside [place] past 30 days?: No Exposure to someone with infectious disease in past 14 days?: No Do you have a fever (greater than 100.4 F or 38 C)?: No Have you tested positive for COVID-19: No Exposed to someone with COVID-19 in past 14 days?: No Do you have a sore throat?: No Do you have a cough?: No Do you have any weakness?: No Do you have any diarrhea?: No Are you experiencing any unusual bleeding?: No Do you have any muscle aches/pain?: No Do you have any abdominal pain?: No Are you experiencing loss of taste or smell?: No Other Medical History Have you received the Flu Vaccine for this season: No Have you received the Pneumonia Vaccine: No ROS Obtained: Yes Systems reviewed as appropriate & no additional complaints except as documented Constitutional Constitutional: Reports as per HPI Physical Exam General General appearance: alert Head Head exam: other (Laceration to nasal bridge) Eye Eye exam: Present normal appearance and PERRL ENT ENT exam: Present normal oropharynx Neck Neck exam: Present normal inspection Respiratory Respiratory exam: Present normal lung sounds bilaterally Cardiovascular Cardiovascular exam: Present regular rate Extremities Exam Extremities exam: Present full ROM Neurological Exam Neurological exam: Present alert and oriented X3 Skin Skin exam: Present other (Laceration to nasal bridge) Medical Decision Making Medical Records Medical records reviewed: Yes I reviewed the patient's medical records. Screening: Per USPSTF and CDC recommendations, given the prevalence of disease in our region, it is our hospital?s policy to screen for HIV and viral Hepatitis for all patients aged 18 and over and those with ongoing risk factors. Obey Inquiry Pt receiving controlled substance: No Obey was queried for this patient: No Vital Signs: 11/05/24 12:08 11/05/24 12:30 Temperature 98.2 F Temperature Source Oral Pulse Rate 88 Pulse Rate [Right] 90 Respiratory Rate 16 18 Blood Pressure 140/74 Blood Pressure [Right Arm] 146/89 H Blood Pressure Mean 96 Blood Pressure Mean [Right Arm] 108 Blood Pressure Source [Right Arm] Automatic Cuff 02 Sat by Pulse Oximetry 99 100 Oxygen Delivery Method Room Air Orders (Tests/Meds): ED MEDICATIONS Discontinued Medications Generic Name Dose Route Start Last Admin Trade Name Freq PRN Reason Stop Dose Admin Lidocaine/Epinephrine 10 ml 11/05/24 12:25 11/05/24 12:49 Lidocaine 1% W/Epi 1:100,000 20ml Vial SQ 11/05/24 12:26 10 ml ONCE ONE Administration Tetanus/Diphtheria Toxoids 0.5 ml 11/05/24 12:25 11/05/24 12:50 Tetanus-Diphth Toxoid, Adult 0.5ml Syr IM 11/05/24 12:26 Not Given .ONCE ONE Tetanus/Reduced Diphtheria/Acell Pertussis 0.5 ml 11/05/24 12:32 11/05/24 12:53 Tet/Diphth/Pert-Adult 0.5ml Syringe IM 11/05/24 12:33 0.5 ml .ONCE ONE Administration Medical Decision Narrative: Insert review patient is a 44-year-old male presenting to the emergency department for evaluation of laceration to nasal bridge. Patient is hemodynamically stable and nontoxic-appearing upon arrival, afebrile. Differential diagnosis includes laceration. Workup will be conducted with no workup needed. Upon repeat evaluation patient's pain is improved, appears better perfused. Patient laceration was repaired with 5 sutures to the nasal bridge. Feels well and has been told to have sutures removed in 7 days by his primary care. Patient is safe for discharge home. Procedures Laceration Laceration 1: Site: face Size (cm): 2.5 Description: linear Depth: simple, single layer Local Anesthetic: lidocaine 2% and with epi Amount of anesthesia used (mL): 2 Pre-repair: irrigated extensively Size (cm): 3-0 Number of sutures: 5 Technique: simple, interrupted Critical Care Critical Care Time Critical Care Time: No
[2024-11-05 13:14] VITALS: BP 138/72; PULSE 86; RESP 18; TEMP 36.6; O2SAT 96
== END 2024-11-05 13:15 | disposition home or self-care (01) ==
PROVIDERS: Emergency Provider Student in an Organized Health Care Education/Training Program; PCP Nurse Practitioner Family
DX: Z02.89 Encounter for other administrative examinations (principal); S01.21XA Laceration without foreign body of nose, initial encounter; X58.XXXA Exposure to other specified factors, initial encounter; Y93.H2 Activity, gardening and landscaping; Z23 Encounter for immunization
CPT/HCPCS: 12011; 90471; 90715; 99283

== ENCOUNTER 2025-03-04 21:42 | Emergency (ER) | payer OTHER, SELFPAY ==
--- OUTSIDE RECORDS SUMMARY | 2025-03-04 21:50 | XMS_ITS | Clinical Summary ---
Author Organization [facility] Address [address] [place] [address] Care Team Providers Care Sheep Shearer Name Role Phone Luis Alfredo Rush MD Primary Care Provider Allergies Active Allergy Reactions Criticality Noted Date Comments Penicillins Other (See Comments) Medium 09/28/2019 Told as a child allergic, unknown reaction Medications Citalopram Hydrobromide (CELEXA PO) Take by mouth. Active Active Problems No known active problems Social History Tobacco Use Types Packs/Day Years Used Date Smoking Tobacco: Never Abuse Screen Answer Date Recorded Unsafe at Home or Work/School Not on file Feels Threatened by Someone? Not on file 06/2023 Does Anyone Keep You from Co ntacting Others or Doint Things Outside the Home? Not on file 05/27/2023 Physical Sign of Abuse Present Not on file 1 Housing Stability Answer Date Recorded Current Living Arrangements Not on file 05/17 Potentially Unsafe Housing Conditions Not on amaya e 05/27/2023 Family and Community Support Answer Shaheed e Recorded Help with Day-to-Day Activities Not on file 05/27/2023 Lonely or Isolated Not on file 05/27/2023 Employment Answer Date Recorded Do you want help finding or keeping work or a rose b? Not on file 05/27/2023 Disabilities Answer Date Recorded Concentrating, Remembering, or Making Decisions Difficulty Not on file 05/27/2023 Doing Errands Independently Difficulty Not on fi le 05/27/2023 Education Answer Date Recorded Help with school or training? Not on file Preferred Language Not on file 05/27/2023 Sex and Gender Information Value Date Recorded Sex Assigned at Not on file Legal Sex Male 8:50 AM EST Gender Identity Not on file Sexual Orientation Not on file Last Filed Vital Signs Vital Sign Reading Time Taken Comments Blood Pressure 144/90 09/28/2019 9:48 AM EST Pulse 88 09/28/2019 9:48 AM EST Temperature 37.6 C (99.6 F) 09/28/2019 9:48 AM EST Respiratory Rate 18 09/28/2019 9:48 AM EST Oxygen Saturation 99% 09/28/2019 9:48 AM EST Inhaled Oxygen Concentration - - Weight 138 kg (304 lb) 09/28/2019 9:48 AM EST Height 182.9 cm (6') 09/28/2019 9:48 AM EST Body Mass Index 41.23 09/28/2019 9:48 AM EST Plan of Treatment Health Maintenance Due Date Last Done Comments ANNUAL PHYSICAL 09/27/2018 HEPATITIS C SCREENING 09/27/2018 COVID-19 Vaccine ( - 2023-2 5 season) 2024 INFLUENZA VACCINE 05/17/2025 TDAP/TD VACCINES (2 - Td or Tdap) 12/01/2025 016 Pneumococcal Vaccine 0-49 Aged Out No longer eligible based on patient's age to complete this topic Insurance Care Teams Sheep Shearer Relationship Specialty Start Date End Date Luis Alfredo Rush MD PCP - General Family Medicine 09/27/18
--- OUTSIDE RECORDS SUMMARY | 2025-03-04 21:50 | XMS_ITS | Data Portability ---
Author Organization [facility] [place] 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 Plan of Treatment Reminders Order Date Submit Date Provider Last Modified By Organization Details Last Modified Time Details Appointments None recorded. Lab magnesium, serum or plasma 2023 024 BAHMAN Segundo, [address], [address], [place], [address], 4 10:13:08 CK (creatine kinase), total, serum 2023 024 BAHMAN Segundo, [address], [address], [place], [address], 4 10:13:09 CBC w/ auto diff 2023 024 BAHMAN Segundo, [address], [address], [place], [address], 4 10:13:00 CMP, serum or plasma 2023 024 BAHMAN Segundo, [address], [address], [place], [address], 4 10:13:01 C reactive protein, QN, serum or plasma 2023 024 BAHMAN Segundo, [address], [address], [place], [address], 4 10:13:06 ESR (erythrocyt e sedimentati on rate), blood 2023 024 BAHMAN [facility], [address], [address], [place], [address], 4 10:13:05 vitamin D, 25-hydroxy, total, serum 2023 024 BAHMAN [facility], [address], [address], [place], [address], 4 10:13:03 D-dimer, quant, plasma 2023 024 ASSUMPTION [facility], [address], [address], [place], [address], 4 10:13:04 Referral None recorded. Procedures None recorded. Surgeries None recorded. Imaging None recorded. Medication Orders cholecalcif lilian (vitamin D3) 1,250 mcg (50,000 unit) capsule 2023 024 [email or web address] [facility], [address] [place] [address], [address], 4 08:30:17 Patient TargetsNo targets recorded. Patient InstructionsNo instructions recorded. Reason for Referral None Reported. Results Created Date Observation Date Name Description Value Unit Range Abnormal Flag Note LastModifiedBy Organization Detail LastModifiedTime 10/06/19 24 10/07/2023 CBC WITH DIFFE RENTI AL/PL ATELE T WBC 5.8 x10e3 /uL 3.4-10 .8 Not Available [facility] ([facility]) [address], [place], [address], 10/07/2023 10:13:00 10/06/19 24 10/07/2023 CBC WITH DIFFE RENTI AL/PL ATELE T RBC 5.27 x10e6 /uL 4.14-5 .80 Not Available [facility] ([facility]) [address] [facility], [place], [address], 10/07/2023 10:13:00 10/06/19 24 10/07/2023 CBC WITH DIFFE RENTI AL/PL ATELE T hemoglobin 16.0 g/dL 13.0-1 7.7 Not Available [facility] ([facility]) [address] [facility], [place], [address], 10/07/2023 10:13:00 10/06/19 24 10/07/2023 CBC WITH DIFFE RENTI AL/PL ATELE T hematocrit 46.6 % 37.5-5 1.0 Not Available [facility] ([facility]) [address] [facility], [place], [address], 10/07/2023 10:13:00 10/06/19 24 10/07/2023 CBC WITH DIFFE RENTI AL/PL ATELE T MCV 88 fL 79-97 Not Available [facility] ([facility]) [address] [facility], [place], [address], 10/07/2023 10:13:00 10/06/19 24 10/07/2023 CBC WITH DIFFE RENTI AL/PL ATELE T MCH 30.4 pg 26.6-3 3.0 Not Available [facility] ([facility]) [address] [facility], [place], [address], 10/07/2023 10:13:00 10/06/19 24 10/07/2023 CBC WITH DIFFE RENTI AL/PL ATELE T MCHC 34.3 g/dL 31.5-3 5.7 Not Available [facility] ([facility]) [address] [place], [address], 10/07/2023 10:13:00 10/06/19 24 10/07/2023 CBC WITH DIFFE RENTI AL/PL ATELE T RDW 13.5 % 11.6-1 5.4 Not Available [facility] ([facility]) [address] [facility], [place], [address], 10/07/2023 10:13:00 10/06/19 24 10/07/2023 CBC WITH DIFFE RENTI AL/PL ATELE T platelets 251 x10e3 /uL 150-45 0 Not Available [facility] ([facility]) [address] [facility], [place], [address], 10/07/2023 10:13:00 10/06/19 24 10/07/2023 CBC WITH DIFFE RENTI AL/PL ATELE T neutrophils 60 % not estab. Not Available [facility] ([facility]) [address] [facility], [place], [address], 10/07/2023 10:13:00 10/06/19 24 10/07/2023 CBC WITH DIFFE RENTI AL/PL ATELE T lymphs 31 % not estab. Not Available [facility] ([facility]) [address] [facility], [place], [address], 10/07/2023 10:13:00 10/06/19 24 10/07/2023 CBC WITH DIFFE RENTI AL/PL ATELE T monocytes 8 % not estab. Not Available [facility] ([facility]) [address] [facility], [place], [address], 10/07/2023 10:13:00 10/06/19 24 10/07/2023 CBC WITH DIFFE RENTI AL/PL ATELE T eos 1 % not estab. Not Available [facility] ([facility]) [address] [facility], [place], [address], 10/07/2023 10:13:00 10/06/19 24 10/07/2023 CBC WITH DIFFE RENTI AL/PL ATELE T basos 0 % not estab. Not Available [facility] ([facility]) [address] [facility], [place], [address], 10/07/2023 10:13:00 10/06/19 24 10/07/2023 CBC WITH DIFFE RENTI AL/PL ATELE T immature cells BOAT FUELER Not Available [facility] ([facility]) [address] [place], [address], 10/07/2023 10:13:00 10/06/19 24 10/07/2023 CBC WITH DIFFE RENTI AL/PL ATELE T neutrophils (absolute) 3.4 x10e3 /uL 1.4-7. 0 Not Available [facility] ([facility]) [address] [place], [address], 10/07/2023 10:13:00 10/06/19 24 10/07/2023 CBC WITH DIFFE RENTI AL/PL ATELE T lymphs (absolute) 1.8 x10e3 /uL 0.7-3. 1 Not Available [facility] ([facility]) [address] [place], [address], 10/07/2023 10:13:00 10/06/19 24 10/07/2023 CBC WITH DIFFE RENTI AL/PL ATELE T monocytes(ab solute) 0.5 x10e3 /uL 0.1-0. 9 Not Available [facility] ([facility]) [address] [place], [address], 10/07/2023 10:13:00 10/06/19 24 10/07/2023 CBC WITH DIFFE RENTI AL/PL ATELE T eos (absolute) 0.1 x10e3 /uL 0.0-0. 4 Not Available [facility] ([facility]) [address] [place], [address], 10/07/2023 10:13:00 10/06/19 24 10/07/2023 CBC WITH DIFFE RENTI AL/PL ATELE T baso (absolute) 0.0 x10e3 /uL 0.0-0. 2 Not Available [facility] ([facility]) [address] [place], [address], 10/07/2023 10:13:00 10/06/19 24 10/07/2023 CBC WITH DIFFE RENTI AL/PL ATELE T immature granulocytes 0 % not estab. Not Available [facility] ([facility]) [address] [facility], [place], [address], 10/07/2023 10:13:00 10/06/19 24 10/07/2023 CBC WITH DIFFE RENTI AL/PL ATELE T immature grans (abs) 0.0 x10e3 /uL 0.0-0. 1 Not Available [facility] ([facility]) [address] [facility], [place], [address], 10/07/2023 10:13:00 10/06/19 24 10/07/2023 CBC WITH DIFFE RENTI AL/PL ATELE T NRBC BOAT FUELER Not Available [facility] ([facility]) [address] [facility], [place], [address], 10/07/2023 10:13:00 10/06/19 24 10/07/2023 CBC WITH DIFFE RENTI AL/PL ATELE T hematology comments: BOAT FUELER Not Available [facility] ([facility]) [address] [facility], [place], [address], 10/07/2023 10:13:00 10/06/19 24 10/07/2023 COMP. METAB OLIC PANEL (14) glucose 127 mg/dL 70-99 above high normal Not Available [facility] ([facility]) [address] [facility], [place], [address], 10/07/2023 10:13:01 10/06/19 24 10/07/2023 COMP. METAB OLIC PANEL (14) BUN 16 mg/dL 6-24 Not Available [facility] ([facility]) [address] [place], [address], 10/07/2023 10:13:01 10/06/19 24 10/07/2023 COMP. METAB OLIC PANEL (14) creatinine 0.86 mg/dL 0.76-1 .27 Not Available [facility] ([facility]) [address] [facility], [place], [address], 10/07/2023 10:13:01 10/06/19 24 10/07/2023 COMP. METAB OLIC PANEL (14) eGFR 111 mL/mi n/1.7 3 >59 Not Available [facility] ([facility]) [address] [facility], [place], [address], 10/07/2023 10:13:01 10/06/19 24 10/07/2023 COMP. METAB OLIC PANEL (14) BUN/creatini ne ratio 19 - Not Available [facility] ([facility]) [address] [facility], [place], [address], 10/07/2023 10:13:01 10/06/19 24 10/07/2023 COMP. METAB OLIC PANEL (14) sodium 139 mmol/ L 134-14 4 Not Available [facility] ([facility]) [address] [place], [address], 10/07/2023 10:13:01 10/06/19 24 10/07/2023 COMP. METAB OLIC PANEL (14) potassium 4.2 mmol/ L 3.5-5. 2 Not Available [facility] ([facility]) [address] [facility], [place], [address], 10/07/2023 10:13:01 10/06/19 24 10/07/2023 COMP. METAB OLIC PANEL (14) chloride 98 mmol/ L 96-106 Not Available [facility] ([facility]) [address] [place], [address], 10/07/2023 10:13:01 10/06/19 24 10/07/2023 COMP. METAB OLIC PANEL (14) carbon dioxide, total 25 mmol/ L 20-29 Not Available [facility] ([facility]) [address], [place], [address], 10/07/2023 10:13:01 10/06/19 24 10/07/2023 COMP. METAB OLIC PANEL (14) calcium 9.8 mg/dL 8.7-10 .2 Not Available [facility] ([facility]) [address], [place], [address], 10/07/2023 10:13:01 10/06/19 24 10/07/2023 COMP. METAB OLIC PANEL (14) protein, total 7.4 g/dL 6.0-8. 5 Not Available [facility] ([facility]) [address] [place], [address], 10/07/2023 10:13:01 10/06/19 24 10/07/2023 COMP. METAB OLIC PANEL (14) albumin 4.6 g/dL 4.1-5. 1 Not Available [facility] ([facility]) [address] [place], [address], 10/07/2023 10:13:01 10/06/19 24 10/07/2023 COMP. METAB OLIC PANEL (14) globulin, total 2.8 g/dL 1.5-4. 5 Not Available [facility] ([facility]) [address] [place], [address], 10/07/2023 10:13:01 10/06/19 24 10/07/2023 COMP. METAB OLIC PANEL (14) A/G ratio 1.6 1.2-2. 2 Not Available [facility] ([facility] [address] [facility] [place], [address], 10/07/2023 10:13:01 10/06/19 24 10/07/2023 COMP. METAB OLIC PANEL (14) bilirubin, total 0.4 mg/dL 0.0-1. 2 Not Available [facility] ([facility]) [address] [facility], [place], [address], 10/07/2023 10:13:01 10/06/19 24 10/07/2023 COMP. METAB OLIC PANEL (14) alkaline phosphatase 105 IU/L 44-121 Not Available [facility] ([facility]) [address] [place], [address], 10/07/2023 10:13:01 10/06/19 24 10/07/2023 COMP. METAB OLIC PANEL (14) AST (SGOT) 43 IU/L 0-40 above high normal Not Available [facility] ([facility]) [address] [place], [address], 10/07/2023 10:13:01 10/06/19 24 10/07/2023 COMP. METAB OLIC PANEL (14) ALT (SGPT) 93 IU/L 0-44 above high normal Not Available [facility] ([facility]) [address] [facility], [place], [address], 10/07/2023 10:13:01 10/06/19 24 10/07/2023 VITAM IN D, 25-HY DROXY vitamin D, 25-hydroxy 25.9 NG/mL 30.0-1 00.0 below low normal Vitam in D defic iency has been defin ed by the Insti tute of Medic ine and an Endoc rine Socie ty pract ice guide line as a level of serum 25-OH vitam in D less than 20 ng/mL (1,2) . The Endoc rine Socie ty went on to furth er defin e vitam in D insuf ficie ncy as a level betwe en 21 and 29 ng/mL (2). 1. IOM (Inst itute of Medic ine). 2010. Dieta ry refer ence intak es for calci um and D. Ayde ayala [place]: The [facility] . 2. Sharan jackman MF, Catherine meek [place], Kristan off-F errar i BORGES, et al. Evalu ation , treat ment, and preve ntion of vitam in D defic iency : an Endoc rine Socie ty clini jose juan pract ice guide line. JCEM. 2010; 96(7) :1911 -30. Not Available [facility] ([facility]) [address] [facility], [place], [address], 10/07/2023 10:13:03 10/06/19 24 10/07/2023 D-DIM ER D-dimer <0.20 mg/L_ feu 0.00-0 .49 Accor ding to the assay manuf actur er's publi shed packa ge inser t, a grady l (<0.5 0 mg/L FEU) D-dim er resul t in conju nctio n with a non-h igh clini jose juan proba bilit y asses sment , exclu kulwinder deep vein throm bosis (DVT) and pulmo nary embol ism (PE) with high sensi tivit y. D-dim er value s incre ase with age and this can make VTE exclu ventura of an older popul ation diffi cult. To addre ss this, the Ameri can Colle ge of Physi cians , based on best avail able evide nce and recen t guide lines , recom mends that clini cians use age-a djust ed D-dim er thres holds in patie nts great er than 50 years of age with: a) a low proba bilit y of PE who do not meet all Pulmo nary Embol ism Rule Out Crite dez, or b) in those with inter media te proba bilit y of PE. The formu la for an age-a djust ed D-dim er cut-o ff is age/ 100 . For examp le, a 60 year old patie nt would have an age-a djust ed cut-o ff of 0.60 mg/L FEU and an 80 year old 0.80 mg/L FEU. Not Available [facility] ([facility]) [address] [facility], [place], [address], 10/07/2023 10:13:04 10/06/19 24 10/07/2023 SEDIM ENTAT ION RATE- WESTE RGREN sedimentatio n rate-westerg jamshid 19 mm/HR 0-15 above high normal Not Available [facility] ([facility]) [address] [facility], [place], [address], 10/07/2023 10:13:05 10/06/19 24 10/07/2023 C-GILDA CTIVE PROTE IN, QUANT C-reactive protein, quant 3 mg/L 0-10 Not Available [facility] ([facility]) [address] [facility], [place], [address], 10/07/2023 10:13:06 10/06/19 24 10/07/2023 MAGNE SIUM magnesium 2.4 mg/dL 1.6-2. 3 above high normal Not Available [facility] ([facility]) [address] [facility], [place], [address], 10/07/2023 10:13:08 10/06/19 24 10/07/2023 CREAT INE KINAS E,TOT AL creatine kinase,total 228 U/L 49-439 Not Available [facility] ([facility]) [address] [place], [address], 10/07/2023 10:13:09 12/04/19 24 12/04/2023 CBC AUTO NO DIFF (HEMO GRAM) WBC 5.4 10 4.5-11 .5 Not Available [facility] ([facility] Registration) [address] [place], [address], 12/04/2023 12:09:15 12/04/19 24 12/04/2023 CBC AUTO NO DIFF (HEMO GRAM) RBC 5.14 10 4.25-5 .57 Not Available [facility] ([facility]) [address] [place], [address], 12/04/2023 12:09:15 12/04/19 24 12/04/2023 CBC AUTO NO DIFF (HEMO GRAM) HGB 15.4 g/dL 13.5-1 7.2 Not Available [facility] ([facility] Registration) [address] [place], [address], 12/04/2023 12:09:15 12/04/19 24 12/04/2023 CBC AUTO NO DIFF (HEMO GRAM) HCT 44.3 % 42.0-5 2.0 Not Available [facility] ([facility] Registration) [address] [place], [address], 12/04/2023 12:09:15 12/04/19 24 12/04/2023 CBC AUTO NO DIFF (HEMO GRAM) MCV 86.2 fL 80-95 Not Available [facility] ([facility]) [address] [place], [address], 12/04/2023 12:09:15 12/04/19 24 12/04/2023 CBC AUTO NO DIFF (HEMO GRAM) MCH 30.0 pg 27.0-3 4.0 Not Available [facility] ([facility] Registration) [address] [place], [address], 12/04/2023 12:09:15 12/04/19 24 12/04/2023 CBC AUTO NO DIFF (HEMO GRAM) MCHC 34.8 g/dL 32.0-3 6.0 Not Available [facility] ([facility]) [address] [place], [address], 12/04/2023 12:09:15 12/04/19 24 12/04/2023 CBC AUTO NO DIFF (HEMO GRAM) platelet count 249 10 150-45 0 Not Available [facility] ([facility] Registration) [address] [place], [address], 12/04/2023 12:09:15 12/04/19 24 12/04/2023 CBC AUTO NO DIFF (HEMO GRAM) RDW 12.8 % 12.3-1 5.1 Not Available [facility] ([facility] Registration) [address] [place], [address], 12/04/2023 12:09:15 12/04/19 24 12/04/2023 CBC AUTO NO DIFF (HEMO GRAM) MPV 10.2 fL 7.4-10 .4 Not Available [facility] ([facility] Registration) [address] , [place], [address], 12/04/2023 12:09:15 12/04/19 24 12/04/2023 CBC AUTO NO DIFF (HEMO GRAM) note Unles s other matos noted testi ng perfo rmed at: [facility] [address] [place] [address] [phone] Yong padilla MD CLIA: [id number] Not Available [facility] ([facility] Registration) [address] [place], [address], 12/04/2023 12:09:15 Result Notes None recorded. Problems Name Problem SNOMED Code Status Onset Date Resolution Date Notes Provider Name and Address Organization Details Recorded Time Gastric ulcer 599501464 Active 2023 DIMITRY Kuo LPNT [facility] [place] 4 08:31:32 Obstructive sleep apnea syndrome 62410146 Active 2023 DIMITRY Kuo [facility] [place] 4 08:31:42 Problem Notes None recorded. Medical Equipment None Reported. Allergies No known drug allergies Medications Name Sig Start Date Stop Date Status Note LastModified by Organization Details LastModified Time fluoxetine 40 mg capsule active Not Available Not Available Not Available doxycycline hyclate 100 mg capsule active Not Available Not Available N ot Available valsartan 160 mg-hydrochl orothiazide 12.5 mg tablet 10/10 completed Not Available Not Available Not Available losartan 25 mg tablet 10/10 completed Not Available Not Available Not Available nifedipine ER 60 mg tablet,exte nded release active Not Available Not Available Not Available losartan 100 mg tablet 10/10 completed Not Available Not Available Not Available fluoxetine 20 mg capsule 10/10 completed Not Available Not Available Not Available multivitami n active Not Available Not Available Not Available Vitamin B12 active Not Available Not A vailable Not Available valsartan 320 mg-hydrochl orothiazide 25 mg tablet active Not Available Not Available Not Available cholecalcif lilian (vitamin D3) 1,250 mcg (50,000 unit) capsule Take 1 capsule every week by oral route as directed for 90 days. 11/11 completed Not Available Not Available Not Available [facility] COVID-19 Antigen Rapid Home Test kit 11/11 completed Not Available Not Available Not Available Vitals Date Recorded Body height Body mass index (BMI) Body weight Body temperature Oxygen saturation Oxygen saturation in Arterial blood by Pulse oximetry Heart rate Systolic And Diastolic Provider Name and Address Organization Details Last Updated DateTime 4 182.88 cm 41.5 kg/m2 601493. 27 g 98.8 [degF] 96 % 96 % 102 /min 160/98 mm[Hg] Nicky Sharif [facility] [place] 4 11:15:17 Date Recorded Body height Heart rate Oxygen saturation Oxygen saturation in Arterial blood by Pulse oximetry Body temperature Body mass index (BMI) Body weight Systolic And Diastolic Provider Name and Address Organization Details Last Updated DateTime 4 182.88 cm 95 /min 96 % 96 % 97.5 [degF] 41.9 kg/m2 740649. 76 g 130/98 mm[Hg] Nicky Sharif [facility] [place] 4 10:08:56 Date Recorded Body height Body mass index (BMI) Body weight Body temperature Provider Name and Address Organization Details Last Updated DateTime 11/13/2023 182.88 cm 41.9 kg/m2 919326.04 g 98.5 [degF] Ignaciotheo MORAES [facility] [place] 11/13/2023 08:56:17 Social History Question Answer Notes LastModified by Organizat ion Details LastModified Time Tobacco Smoking Status Never Smoker Ignaciotheo Ogden peewee [facility] [place] 11/12/2023 08:25:40 Do You Have An Advance Directive? No [email or web address] Information not available 11/12/2023 Are You Blind Or Do You Have Difficulty Seeing? No Information not available 11/12/2023 What Was The Date Of Your Most Recent Tobacco Screening? 10/05/2023 [email or web address] Information not available 11/12/2023 Are You Passively Exposed To Smoke? No [email or web address] Information not available 11/12/2023 How Much Tobacco Do You Smoke? No [email or web address] Information not available 11/12/2023 How Many Years Have You Smoked Tobacco? 0 [email or web address] Information not available 11/12/2023 Sex: Unknown Functional Status Question Answer Note LastModified by Organizat ion Details LastModified Time Do you use any illicit or recreational drugs? No Information not available 11/12/2023 What is your level of alcohol consumption? Occasional [email or web address] Information not available 11/12/2023 Do you or have you ever used smokeless tobacco? Never used smokeless tobacco [email or web address] Information not available 11/12/2023 What is your exercise level? Occasional [email or web address] Information not available 11/12/2023 Mental Status Question Answer Note LastModified by Organization D etails LastModified Time Do you feel stressed (tense, restless, nervous, or anxious, or unable to sleep at night)? [id number] [email or web address] Information not available 11/12/2023 Family History Relationship Description Onset Age of this Age Resolved Age Notes LastModified by Organization Details LastModified Time Father Heart disease pt. added direct ly (10/05) [email or web address] Not available 10/05/2023 11:14:30 Father Hypertensive disorder pt. added direct ly (10/05) [email or web address] Not available 10/05/2023 11:14:39 Mother Mental health problem pt. 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 Will check some lab work. Will see patient back in 1 week. Patient is followed by Cardiology and will see the Pulmonolog ist in October. Fatigue 93503034 R53.83 see above. Muscle pain 92856347 M79 .10 see above. Body mass index 40+ - severely obese 107790044 Z68.41 [id number] Ai French in, [employer] [facility] [address] [place] [address] 10/14/2023 09:51:39 10/14/2023 10:31:28 Vitamin D deficiency 06205660 E55.9 Will send in the large dose of Vitamin D3 since levels are low. Patient states he currently takes a daily OTC dose. Counseled on the new dose and how to take once weekly. Counseled on the effects of vitamin d deficiency . Follow up with PCP as needed. Muscle pain 26949079 M79 .10 Lab work discussed with patient. Referral to Results Physiother apy was discussed. Patient does not want the referral. [id number] Anders Stinson Jr, MD [facility] [address] [address] 11/13/2023 08:53:44 11/13/2023 10:24:17 Counseling for elective sterilization done [id number] 16504 Z30.2 43-year-ol d white male in for vasectomy consultati on. Patient read over the vasectomy materials today and we discussed the operative procedure, complicati ons and postoperat joseph course. All questions were answered and patient wishes to proceed and will set the procedure up at his earliest convenienc e. We discussed that he is not officially sterile until he brings back 2 semen samples and should continue contracept ion until that time.Of note patient does have a history of hypertensi on and currently complainin g of some tachycardi a due to new medication . He is to follow up with his primary care physician regarding this problem. Health Concerns Section Related Observation LastModified by Organization Detai ls LastModified Time None Recorded Concern Status LastModified by Organization Details LastModified Time None Recorded Advance Directives Directive N: Payers Insurance Date Sequence Insurance Name Policy Number Policy Landeros Covered Member ID Landeros Member ID Guarantor Name 03/05/2024 1 AL [facility] (MEDICAID HMO) Douglas Diaz [id number] Douglas Diaz 03/05/2024 1 AELARRY [facility] (MEDICAID HMO) Douglas Diaz [id number] Douglas Diaz Notes Date Note Type Note Provider Name and Address Organization Details Recorded Time 10/06/2023 text/html Patient is a 43 year old white male presenting to clinic today for a referral for myalgia and fatigue s/p covid 19 diagnosis in March 2023. Patient has been started on blood pressure medication and reports blood pressure readings of 130s-160 systolically and 80s diastolically. Patient has been evaluated by Cardiology and his stress test was negative. 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 He was evaluated for a sleep study and was not able to tolerate or complete it. He states he has a smart watch which is monitoring oxygen saturation and heart rate and those remain normal during sleep. He states that he is only getting about 10% REM sleep at night. He does state he snores. He reports getting very fatigued with normal household activities. 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 he also has a history of EBV when he was 16 years old and had a positive IGG. He denies any history of blood clots, denies any history or family history of a clotting disorder. Denies any leg pain or swelling. He does report that his legs feel tired and heavy. He denies any spider veins or varicose veins, denies any neuropathies or edema. Denies any sharp shooting leg pains. Denies any spinal pain or cervical tenderness or stiffness. Ai Marrero APRN [address], [place], [address], [facility] - [place] - [place] & [place] 10/06/2023 12:04:04 10/14/2023 text/html Patient is a 43 year old white male presenting to clinic today for follow up for myalgia and fatigue s/p covid 19 diagnosis in March 2023. He presents today to discuss lab work. Ai Marrero APRN [address], [place], [address], [place] [facility] - [place] & [place] 10/14/2023 11:32:10 11/13/2023 text/html Patient is a 43-year-old white male referred for vasectomy consultation today. Patient is with children and he and his have discussed sterilization options and have agreed upon vasectomy. Patient denies any scrotal or testicular abnormalities. He looked over the vasectomy materials today. Anders Stinson Jr, MD [address] [place] [id number], [address], [place], [address], [place] [facility] & [place] 11/14/2023 12:03:22
--- NOTE | 2025-03-04 21:55 | CT_ITS ---
PROCEDURE INFORMATION: Exam: CT Head Without Contrast Exam date and time: 03/04/2025 10:11 PM Age: 44 years old Clinical indication: Injury or trauma; Other: Head trauma TECHNIQUE: Imaging protocol: Computed tomography of the head without contrast. Radiation optimization: All CT scans at this facility use at least one of these dose optimization techniques: automated exposure control; mA and/or kV adjustment per patient size (includes targeted exams where dose is matched to clinical indication); or iterative reconstruction. COMPARISON: CT HEAD/BRAIN WO CON 05/13/2023 4:23 PM FINDINGS: Brain: Normal. No hemorrhage. Unremarkable white matter. No mass effect. Cerebral ventricles: No ventriculomegaly. Cavum septum pellucidum et vergae again noted. Paranasal sinuses: Visualized sinuses are unremarkable. No fluid levels. Mastoid air cells: Visualized mastoid air cells are well aerated. Bones: Unremarkable. No acute fracture. Soft tissues: Unremarkable. IMPRESSION: No acute intracranial abnormality.
--- NOTE | 2025-03-04 21:55 | CT_ITS ---
PROCEDURE INFORMATION: Exam: CT Cervical Spine Without Contrast Exam date and time: 03/04/2025 10:13 PM Age: 44 years old Clinical indication: Injury or trauma; Other: Neck pain S/P trauma TECHNIQUE: Imaging protocol: Computed tomography of the cervical spine without contrast. Radiation optimization: All CT scans at this facility use at least one of these dose optimization techniques: automated exposure control; mA and/or kV adjustment per patient size (includes targeted exams where dose is matched to clinical indication); or iterative reconstruction. COMPARISON: CT HEAD/BRAIN WO CON 03/04/2025 10:11 PM FINDINGS: Bones: No acute fracture. Normal alignment. No significant disc bulge or herniation. No severe spinal canal stenosis. No significant neural foraminal narrowing. Lungs: Lung apices are normal. Soft tissues: Unremarkable. IMPRESSION: No acute cervical spine fracture.
[2025-03-04 21:56] VITALS: BP 130/75; PULSE 105; RESP 18; TEMP 36.9; O2SAT 98; BMI 38.2
--- NOTE | 2025-03-04 21:58 | HMH.EDGENADL ---
Discharge Plan Disposition Patient Disposition: Home, Self-Care Condition: Good Prescriptions Prescriptions: No Action valsartan-hydrochlorothiazide 320-25 mg tablet 1 tab PO DAILY Qty: 90 3RF cholecalciferol (vitamin D3) 1,250 mcg (50,000 unit) capsule 1,250 mcg PO WEEKLY fluoxetine 40 mg capsule 40 mg PO DAILY amlodipine 5 mg tablet 5 mg PO DAILY Qty: 90 3RF Referrals Follow up/Referrals: Lissett Meadows APRN [Primary Care Provider, Medical] - See instructions Activity Restrictions/Add. Instructions Additional Instructions/Restrictions: You can take Tylenol and ibuprofen at home for any pain or headaches. You may continue to have musculoskeletal pain which you can use heat and ice as needed. You may have a mild concussion therefore if you have any difficulties with concentration, difficulties with blurry vision or reading or other activities that require significant concentration then please hold off on doing those activities for the next 24 to 48 hours. Follow-up with your primary care provider in the next week or the emergency department for any acute or worsening neurologic symptoms. You can go to bed as usual tonight. Clinical Impressions Clinical Impression: Concussion, Headache Print Language Print Language: Burkinan Discharge ED Provider: Rosalie Talley General Adult HPI General Chief complaint: Head Injury Stated complaint: AO 03/04/25 drop something on head Time Seen by Provider: 03/04/25 21:48 History of Present Illness HPI narrative: Patient is a 44-year-old gentleman with no past medical history, not on blood thinners who presented to the emergency department after a Pergola fell on him. Patient states that it was a heavy weighted Pergola and it landed onto his left side of his arm as well as his head. Patient states that he did not lose consciousness but is reporting a headache and feeling off. Patient denies any numbness or weakness. Patient denies any chest pain or abdominal pain. Patient denies any extremity pain. Patient was able to ambulate after the event. Related Data Home Medications ?Medication ?Instructions ?Recorded ?Confirmed cholecalciferol (vitamin D3) 1,250 1,250 mcg PO WEEKLY 03/14/24 12/16/24 mcg (50,000 unit) capsule fluoxetine 40 mg capsule 40 mg PO DAILY 12/14/24 12/16/24 Previous Rx's ?Medication ?Instructions ?Recorded valsartan 320 1 tab PO DAILY #90 tabs 09/30/24 mg-hydrochlorothiazide 25 mg tablet amlodipine 5 mg tablet 5 mg PO DAILY #90 tabs 12/14/24 Allergies Allergy/AdvReac Type Severity Reaction Status Date / Time No Known Allergies Allergy Verified 12/16/24 14:24 [facility] Disclaimer: The information contained in this section may have been updated after the patient was seen, as this information can be updated by other users. Medical History Left ventricular hypertrophy [place] (obstructive sleep apnea) Abnormal ECG Gastric ulcer Family History Other Family history of hypertension Social History (Reviewed 12/16/24 @ 14: by SHAINA Amor) Smoking Status: Never smoker alcohol intake: current alcohol intake frequency: a few times a month substance use type: denies use current occupational status: employed Travel in the last 8 weeks?: Inside the [place] Have you lived/traveled outside US in past 30 days?: No Contact w/someone who lives/traveled outside US past 30 days?: No Exposure to someone with infectious disease in past 14 days?: No Do you have a fever (greater than 100.4 F or 38 C)?: No Have you tested positive for COVID-19?: No Exposed to someone with COVID-19 in past 14 days?: No Do you have a sore throat?: No Do you have a cough?: No Do you have any weakness?: No Do you have any diarrhea?: No Are you experiencing any unusual bleeding?: No Do you have any muscle aches/pain?: No Do you have any abdominal pain?: No Are you experiencing loss of taste or smell?: No Other Medical History Have you received the Flu Vaccine for this season: No Have you received the Pneumonia Vaccine: No ROS Obtained: Yes All systems reviewed & no additional complaints except as documented and Yes Systems reviewed as appropriate & no additional complaints except as documented Physical Exam General General appearance: alert and in no apparent distress Head Head exam: atraumatic, normocephalic, normal inspection and other (No Blair sign, neck no raccoon eyes, no hemotympanum bilaterally, no evidence of acute injuries) Eye Eye exam: Present normal appearance, PERRL and EOMI; Absent scleral icterus ENT ENT exam: Present normal exam and normal external ear exam Neck Neck exam: Present normal inspection and full ROM Chest Chest inspection: Present normal inspection and symmetric chest wall rise Respiratory Respiratory exam: Present normal lung sounds bilaterally; Absent respiratory distress or wheezes Cardiovascular Cardiovascular exam: Present regular rate, normal rhythm and normal heart sounds Abdominal Exam Abdominal exam: Present soft and distention; Absent tenderness, guarding or rebound Extremities Exam Extremities exam: Present normal inspection, full ROM and other (Able to fully range all extremities no tenderness) Back Exam Back exam: Present normal inspection, full ROM and other (No midline spinal tenderness, C, T or L spine) Neurological Exam Neurological exam: Present alert and oriented X3 Psychiatric Psychiatric exam: Present normal affect and normal mood Skin Skin exam: Present warm and dry Medical Decision Making Medical Records Screening: Per USPSTF and CDC recommendations, given the prevalence of disease in our region, it is our hospital?s policy to screen for HIV and viral Hepatitis for all patients aged 18 and over and those with ongoing risk factors. Obey Inquiry Pt receiving controlled substance: No Vital Signs: 03/04/25 21:56 03/04/25 22:02 03/04/25 23:11 Temperature 98.5 F 98.5 F 98.9 F Temperature Source Oral Oral Pulse Rate 94 H 92 H Pulse Rate [Left] 105 H Respiratory Rate 18 16 18 Blood Pressure 130/74 120/79 Blood Pressure [Right Arm] 130/75 Blood Pressure Mean [Right Arm] 93 Blood Pressure Source Automatic Cuff Blood Pressure Source [Right Arm] Automatic Cuff Blood Pressure Position Sitting Sitting Blood Pressure Position [Right Arm] Sitting 02 Sat by Pulse Oximetry 98 98 Oxygen Delivery Method Room Air Room Air Room Air Lab Data Lab results reviewed: Yes I reviewed the patient's lab results. Orders (Tests/Meds): ED MEDICATIONS Discontinued Medications Generic Name Dose Route Start Last Admin Trade Name Freq PRN Reason Stop Dose Admin Acetaminophen 1,000 mg 03/04/25 21:55 03/04/25 22:05 Acetaminophen 500mg Tab PO 03/04/25 21:56 1,000 mg ONCE ONE Administration Methocarbamol 500 mg 03/04/25 21:56 03/04/25 22:05 Methocarbamol 500mg Tablet PO 03/04/25 21:57 500 mg ONCE ONE Administration ORDERS Category Date Time Status CT cervical spine wo con Stat Cat Scan 03/04/25 21:[address] head/brain wo con Stat Cat Scan 03/04/25 21:55 Completed Medical Decision Narrative: Patient is a 44-year-old gentleman with no significant past medical history who presented to the emergency department after a Pergola fell on him. On arrival, patient was hemodynamically stable with unremarkable vital signs. Differential includes but not limited to concussion, musculoskeletal sprain, strain, concussion, amongst others. Patient did not have any loss of consciousness, patient did not have any midline spinal tenderness therefore patient is Shannon CT head negative and Nexus negative by criteria however given the wait of the Pergola I decided to CT head and CT cervical spine the patient. Patient's imaging was reviewed and interpreted by myself and showed no acute pathology. Patient was given medications for pain in the emergency department. Patient was given concussion instructions and patient was discharged home in stable condition. Critical Care Critical Care Time Critical Care Time: No
[2025-03-04 22:02] VITALS: BP 130/74; PULSE 94; RESP 16; TEMP 36.9; O2SAT 98
[2025-03-04] MEDS: METHOCARBAMOL 500MG TABLET 500 MG PO (22:05)
[2025-03-04] MEDS: ACETAMINOPHEN 500MG TAB 1000 MG PO (22:05)
--- NOTE | 2025-03-04 22:11 | PC.NURSE ---
Pt transported to CT
[2025-03-04 23:11] VITALS: BP 120/79; PULSE 92; RESP 18; TEMP 37.2; O2SAT 95
== END 2025-03-04 23:12 | disposition home or self-care (01) ==
PROVIDERS: Emergency Provider Student in an Organized Health Care Education/Training Program; PCP Nurse Practitioner Family
DX: S06.0X0A Concussion without loss of consciousness, initial encounter (principal); W20.8XXA Other cause of strike by thrown, projected or falling object, initial encounter
CPT/HCPCS: 70450; 72125; 99285

== ENCOUNTER 2025-03-13 14:47 | Outpatient (CLI) | payer OTHER, SELFPAY ==
--- OUTSIDE RECORDS SUMMARY | 2025-03-13 14:49 | XMS_ITS | Data Portability ---
Author Organization [facility] & [place] [facility] ADMIN Address [address] [place] [id number] Care Team Providers Care Dividend Deposit Voucher Clerk Name Role Phone KELLY BRAGG Primary Care Provider Assessment No assessment recorded. Plan of Treatment Reminders Order Date Submit Date Provider Last Modified By Organization Details Last Modified Time Details Appointments None recorded. Lab magnesium, serum or plasma 2023 024 BAHMAN Segundo, [address], [address], [place], [address], 4 10:13:08 CK (creatine kinase), total, serum 2023 024 BAHMAN Segundo, [address], [address], [place], [address], 4 10:13:09 CBC w/ auto diff 2023 024 BAHMAN Segundo, [address], [address], [place], [address], 4 10:13:00 CMP, serum or plasma 2023 024 BAHMAN Segundo, [address], [address], [place], [address], 4 10:13:01 C reactive protein, QN, serum or plasma 2023 024 BAHMAN Segundo, [address], [address], [place], [address], 4 10:13:06 ESR (erythrocyt e sedimentati on rate), blood 2023 024 [facility], [address], [address], [place], [address], 4 10:13:05 vitamin D, 25-hydroxy, total, serum 2023 024 [facility], [address], [address], [place], [address], 4 10:13:03 D-dimer, quant, plasma 2023 024 [place] [facility], [address], [address], [place], [address], 4 10:13:04 Referral None recorded. Procedures None recorded. Surgeries None recorded. Imaging None recorded. Medication Orders cholecalcif lilian (vitamin D3) 1,250 mcg (50,000 unit) capsule 2023 024 [email or web address] [facility], [address] [place] [address], [address], 4 08:30:17 Patient TargetsNo targets recorded. Patient InstructionsNo instructions recorded. Reason for Referral None Reported. Results Created Date Observation Date Name Description Value Unit Range Abnormal Flag Note LastModifiedBy Organization Detail LastModifiedTime 10/06/19 24 10/07/2023 CBC WITH DIFFE RENTI AL/PL ATELE T WBC 5.8 x10e3 /uL 3.4-10 .8 Not Available [facility] ([facility]) [address], [place], [address], 10/07/2023 10:13:00 10/06/19 24 10/07/2023 CBC WITH DIFFE RENTI AL/PL ATELE T RBC 5.27 x10e6 /uL 4.14-5 .80 Not Available [facility] ([facility]) [address] [facility], [place], [address], 10/07/2023 10:13:00 10/06/19 24 10/07/2023 CBC WITH DIFFE RENTI AL/PL ATELE T hemoglobin 16.0 g/dL 13.0-1 7.7 Not Available [facility] ([facility]) [address] [facility], [place], [address], 10/07/2023 10:13:00 10/06/19 24 10/07/2023 CBC WITH DIFFE RENTI AL/PL ATELE T hematocrit 46.6 % 37.5-5 1.0 Not Available [facility] ([facility]) [address] [facility], [place], [address], 10/07/2023 10:13:00 10/06/19 24 10/07/2023 CBC WITH DIFFE RENTI AL/PL ATELE T MCV 88 fL 79-97 Not Available [facility] ([facility]) [address] [facility], [place], [address], 10/07/2023 10:13:00 10/06/19 24 10/07/2023 CBC WITH DIFFE RENTI AL/PL ATELE T MCH 30.4 pg 26.6-3 3.0 Not Available [facility] ([facility]) [address] [facility], [place], [address], 10/07/2023 10:13:00 10/06/19 24 10/07/2023 CBC WITH DIFFE RENTI AL/PL ATELE T MCHC 34.3 g/dL 31.5-3 5.7 Not Available [facility] ([facility]) [address] [place], [address], 10/07/2023 10:13:00 10/06/19 24 10/07/2023 CBC WITH DIFFE RENTI AL/PL ATELE T RDW 13.5 % 11.6-1 5.4 Not Available [facility] ([facility]) [address] [facility], [place], [address], 10/07/2023 10:13:00 10/06/19 24 10/07/2023 CBC WITH DIFFE RENTI AL/PL ATELE T platelets 251 x10e3 /uL 150-45 0 Not Available [facility] ([facility]) [address] [facility], [place], [address], 10/07/2023 10:13:00 10/06/19 24 10/07/2023 CBC WITH DIFFE RENTI AL/PL ATELE T neutrophils 60 % not estab. Not Available [facility] ([facility]) [address] [facility], [place], [address], 10/07/2023 10:13:00 10/06/19 24 10/07/2023 CBC WITH DIFFE RENTI AL/PL ATELE T lymphs 31 % not estab. Not Available [facility] ([facility]) [address] [facility], [place], [address], 10/07/2023 10:13:00 10/06/19 24 10/07/2023 CBC WITH DIFFE RENTI AL/PL ATELE T monocytes 8 % not estab. Not Available [facility] ([facility]) [address] [facility], [place], [address], 10/07/2023 10:13:00 10/06/19 24 10/07/2023 CBC WITH DIFFE RENTI AL/PL ATELE T eos 1 % not estab. Not Available [facility] ([facility]) [address] [facility], [place], [address], 10/07/2023 10:13:00 10/06/19 24 10/07/2023 CBC WITH DIFFE RENTI AL/PL ATELE T basos 0 % not estab. Not Available [facility] ([facility]) [address] [facility], [place], [address], 10/07/2023 10:13:00 10/06/19 24 10/07/2023 CBC WITH DIFFE RENTI AL/PL ATELE T immature cells RN LONG TERM CARE Not Available [facility] ([facility]) [address] [place], [address], 10/07/2023 10:13:00 10/06/19 24 10/07/2023 CBC WITH DIFFE RENTI AL/PL ATELE T neutrophils (absolute) 3.4 x10e3 /uL 1.4-7. 0 Not Available [facility] ([facility]) [address] [place], [address], 10/07/2023 10:13:00 10/06/19 24 10/07/2023 CBC WITH DIFFE RENTI AL/PL ATELE T lymphs (absolute) 1.8 x10e3 /uL 0.7-3. 1 Not Available [facility] ([facility]) [address] [place], [address], 10/07/2023 10:13:00 10/06/19 24 10/07/2023 CBC WITH DIFFE RENTI AL/PL ATELE T monocytes(ab solute) 0.5 x10e3 /uL 0.1-0. 9 Not Available [facility] ([facility]) [address] [place], [address], 10/07/2023 10:13:00 10/06/19 24 10/07/2023 CBC WITH DIFFE RENTI AL/PL ATELE T eos (absolute) 0.1 x10e3 /uL 0.0-0. 4 Not Available [facility] ([facility]) [address] [place], [address], 10/07/2023 10:13:00 10/06/19 24 10/07/2023 CBC WITH DIFFE RENTI AL/PL ATELE T baso (absolute) 0.0 x10e3 /uL 0.0-0. 2 Not Available [facility] ([facility]) [address] [place], [address], 10/07/2023 10:13:00 10/06/19 24 10/07/2023 CBC WITH DIFFE RENTI AL/PL ATELE T immature granulocytes 0 % not estab. Not Available [facility] ([facility]) [address] [facility], [place], [address], 10/07/2023 10:13:00 10/06/19 24 10/07/2023 CBC WITH DIFFE RENTI AL/PL ATELE T immature grans (abs) 0.0 x10e3 /uL 0.0-0. 1 Not Available [facility] ([facility]) [address] [facility], [place], [address], 10/07/2023 10:13:00 10/06/19 24 10/07/2023 CBC WITH DIFFE RENTI AL/PL ATELE T NRBC RN LONG TERM CARE Not Available [facility] ([facility]) [address] [facility], [place], [address], 10/07/2023 10:13:00 10/06/19 24 10/07/2023 CBC WITH DIFFE RENTI AL/PL ATELE T hematology comments: RN LONG TERM CARE Not Available [facility] ([facility]) [address] [facility], [place], [address], 10/07/2023 10:13:00 10/06/19 24 10/07/2023 COMP. METAB OLIC PANEL (14) glucose 127 mg/dL 70-99 above high normal Not Available [facility] ([facility]) [address] [facility], [place], [address], 10/07/2023 10:13:01 10/06/19 24 10/07/2023 COMP. METAB OLIC PANEL (14) BUN 16 mg/dL 6-24 Not Available [facility] ([facility]) [address] [place], [address], 10/07/2023 10:13:01 10/06/19 24 10/07/2023 COMP. METAB OLIC PANEL (14) creatinine 0.86 mg/dL 0.76-1 .27 Not Available [facility] ([facility]) [address] [facility], [place], [address], 10/07/2023 10:13:01 10/06/19 24 10/07/2023 COMP. METAB OLIC PANEL (14) eGFR 111 mL/mi n/1.7 3 >59 Not Available [facility] ([facility]) [address] [facility], [place], [address], 10/07/2023 10:13:01 10/06/19 24 10/07/2023 COMP. METAB OLIC PANEL (14) BUN/creatini ne ratio 19 - Not Available [facility] ([facility]) [address] [facility], [place], [address], 10/07/2023 10:13:01 10/06/19 24 10/07/2023 COMP. METAB OLIC PANEL (14) sodium 139 mmol/ L 134-14 4 Not Available [facility] ([facility]) [address] [place], [address], 10/07/2023 10:13:01 10/06/19 24 10/07/2023 COMP. METAB OLIC PANEL (14) potassium 4.2 mmol/ L 3.5-5. 2 Not Available [facility] ([facility]) [address] [facility], [place], [address], 10/07/2023 10:13:01 10/06/19 24 10/07/2023 COMP. METAB OLIC PANEL (14) chloride 98 mmol/ L 96-106 Not Available [facility] ([facility]) [address] [place], [address], 10/07/2023 10:13:01 10/06/19 24 10/07/2023 COMP. METAB OLIC PANEL (14) carbon dioxide, total 25 mmol/ L 20-29 Not Available [facility] ([facility]) [address], [place], [address], 10/07/2023 10:13:01 10/06/19 24 10/07/2023 COMP. METAB OLIC PANEL (14) calcium 9.8 mg/dL 8.7-10 .2 Not Available [facility] ([facility]) [address], [place], [address], 10/07/2023 10:13:01 10/06/19 24 10/07/2023 COMP. METAB OLIC PANEL (14) protein, total 7.4 g/dL 6.0-8. 5 Not Available [facility] ([facility]) [address] [place], [address], 10/07/2023 10:13:01 10/06/19 24 10/07/2023 COMP. METAB OLIC PANEL (14) albumin 4.6 g/dL 4.1-5. 1 Not Available [facility] ([facility]) [address] [place], [address], 10/07/2023 10:13:01 10/06/19 24 10/07/2023 COMP. METAB OLIC PANEL (14) globulin, total 2.8 g/dL 1.5-4. 5 Not Available [facility] ([facility]) [address] [place], [address], 10/07/2023 10:13:01 10/06/19 24 10/07/2023 COMP. METAB OLIC PANEL (14) A/G ratio 1.6 1.2-2. 2 Not Available [facility] ([facility] [address] [place] [place] [address], 10/07/2023 10:13:01 10/06/19 24 10/07/2023 COMP. METAB OLIC PANEL (14) bilirubin, total 0.4 mg/dL 0.0-1. 2 Not Available [facility] ([facility]) [address] [facility], [place], [address], 10/07/2023 10:13:01 10/06/19 24 10/07/2023 COMP. METAB OLIC PANEL (14) alkaline phosphatase 105 IU/L 44-121 Not Available [facility]) [address] [place], [address], 10/07/2023 10:13:01 10/06/19 24 10/07/2023 COMP. METAB OLIC PANEL (14) AST (SGOT) 43 IU/L 0-40 above high normal Not Available [facility] ([facility]) [address] [place], [address], 10/07/2023 10:13:01 10/06/19 24 10/07/2023 COMP. METAB OLIC PANEL (14) ALT (SGPT) 93 IU/L 0-44 above high normal Not Available [facility] ([facility]) [address] [facility], [place], [address], 10/07/2023 10:13:01 10/06/19 24 10/07/2023 VITAM IN [...] and D. Ayde ayala DC: [facility] Press . 2. Sharan jackman MF, Catherine meek [place], Kristan off-F errar i BORGES, et al. Evalu ation , treat ment, and preve ntion of vitam in D defic iency : an Endoc rine Socie ty clini jose juan pract ice guide line. JCEM. 2010; 96(7) :1911 -30. Not Available [facility] ([facility]) [address] [facility], [place], [address], 10/07/2023 10:13:03 10/06/19 24 10/07/2023 D-DIM ER [...] old 0.80 mg/L FEU. Not Available [facility] ([facility]) [address] [facility], [place], [address], 10/07/2023 10:13:04 10/06/19 24 10/07/2023 SEDIM ENTAT ION RATE- WESTE RGREN sedimentatio n rate-westerg jamshid 19 mm/HR 0-15 above high normal Not Available [facility] ([facility]) [address] [facility], [place], [address], 10/07/2023 10:13:05 10/06/19 24 10/07/2023 C-GILDA CTIVE PROTE IN, QUANT C-reactive protein, quant 3 mg/L 0-10 Not Available [facility] ([facility]) [address] [facility], [place], [address], 10/07/2023 10:13:06 10/06/19 24 10/07/2023 MAGNE SIUM magnesium 2.4 mg/dL 1.6-2. 3 above high normal Not Available [facility] ([facility]) [address] [facility], [place], [address], 10/07/2023 10:13:08 10/06/19 24 10/07/2023 CREAT INE KINAS E,TOT AL creatine kinase,total 228 U/L 49-439 Not Available [facility] ([facility]) [address] [place], [address], 10/07/2023 10:13:09 12/04/19 24 12/04/2023 CBC AUTO NO DIFF (HEMO GRAM) WBC 5.4 10 4.5-11 .5 Not Available [facility] (Lab Registration) [address] [place], [address], 12/04/2023 12:09:15 12/04/19 24 12/04/2023 CBC AUTO NO DIFF (HEMO GRAM) RBC 5.14 10 4.25-5 .57 Not Available [facility] ([facility]) [address] [place], [address], 12/04/2023 12:09:15 12/04/19 24 12/04/2023 CBC AUTO NO DIFF (HEMO GRAM) HGB 15.4 g/dL 13.5-1 7.2 Not Available [facility] ([facility] Registration) [address] [place], [address], 12/04/2023 12:09:15 12/04/19 24 12/04/2023 CBC AUTO NO DIFF (HEMO GRAM) HCT 44.3 % 42.0-5 2.0 Not Available [facility] ([facility] Registration) [address] [place], [address], 12/04/2023 12:09:15 12/04/19 24 12/04/2023 CBC AUTO NO DIFF (HEMO GRAM) MCV 86.2 fL 80-95 Not Available [facility] (Lab Registration) [address] [place], [address], 12/04/2023 12:09:15 12/04/19 24 12/04/2023 CBC AUTO NO DIFF (HEMO GRAM) MCH 30.0 pg 27.0-3 4.0 Not Available [facility] (Lab Registration) [address] [place], [address], 12/04/2023 12:09:15 12/04/19 24 12/04/2023 CBC AUTO NO DIFF (HEMO GRAM) MCHC 34.8 g/dL 32.0-3 6.0 Not Available [facility] ([facility] Registration) [address] [place], [address], 12/04/2023 12:09:15 12/04/19 24 12/04/2023 CBC AUTO NO DIFF (HEMO GRAM) platelet count 249 10 150-45 0 Not Available [facility] (Lab Registration) [address] [place], [address], 12/04/2023 12:09:15 12/04/19 24 12/04/2023 CBC AUTO NO DIFF (HEMO GRAM) RDW 12.8 % 12.3-1 5.1 Not Available [facility] (Lab Registration) [address] [place], [address], 12/04/2023 12:09:15 12/04/19 24 12/04/2023 CBC AUTO NO DIFF (HEMO GRAM) MPV 10.2 fL 7.4-10 .4 Not Available [facility] (Lab Registration) [address] , [place], [address], 12/04/2023 12:09:15 12/04/19 24 12/04/2023 CBC AUTO NO DIFF (HEMO GRAM) note Unles s other matos noted testi ng perfo rmed at: [facility] [address] [place] [address] [phone] Yong padilla MD CLIA: [id number] Not Available [facility] (Lab Registration) [address] [place], [address], 12/04/2023 12:09:15 Result Notes None recorded. Problems Name Problem SNOMED Code Status Onset Date Resolution Date Notes Provider Name and Address Organization Details Recorded Time Gastric ulcer 875396892 Active 2023 DIMITRY Kuo LPNT [facility] [place] 4 08:31:32 Obstructive sleep apnea syndrome 68914075 Active 2023 DIMITRY Kuo [facility] [place] 4 08:31:42 Problem Notes None recorded. Medical [...] completed Not Available Not Available Not Available [facility] COVID-19 Antigen Rapid Home Test kit 11/11 completed Not Available Not Available Not Available Vitals Date Recorded Body height Body mass index (BMI) Body weight Body temperature Oxygen saturation Oxygen saturation in Arterial blood by Pulse oximetry Heart rate Systolic And Diastolic Provider Name and Address Organization Details Last Updated DateTime 4 182.88 cm 41.5 kg/m2 927813. 27 g 98.8 [degF] 96 % 96 % 102 /min 160/98 mm[Hg] Nicky Sharif [facility] [place] 4 11:15:17 Date Recorded Body height Heart rate Oxygen saturation Oxygen saturation in Arterial blood by Pulse oximetry Body temperature Body mass index (BMI) Body weight Systolic And Diastolic Provider Name and Address Organization Details Last Updated DateTime 4 182.88 cm 95 /min 96 % 96 % 97.5 [degF] 41.9 kg/m2 657475. 76 g 130/98 mm[Hg] Nicky Sharif [facility] & [place] 4 10:08:56 Date Recorded Body height Body mass index (BMI) Body weight Body temperature Provider Name and Address Organization Details Last Updated DateTime 11/13/2023 182.88 cm 41.9 kg/m2 947618.04 g 98.5 [degF] Ignaciotheo MORAES [facility] [place] 11/13/2023 08:56:17 Social History Question Answer Notes LastModified by Organizat ion Details LastModified Time Tobacco Smoking Status Never Smoker Ignaciotheo Ogden [email or web address] [facility] [place] 11/12/2023 08:25:40 Do You Have An Advance Directive? No [email or web address] Information not available 11/12/2023 Are You Blind Or Do You Have Difficulty Seeing? No Information not available 11/12/2023 What Was The Date Of Your Most Recent Tobacco Screening? 10/05/2023 [email or web address] Information not available 11/12/2023 Are You Passively Exposed To Smoke? No [email or web address] Information not available 11/12/2023 How Much Tobacco Do You Smoke? No [email or web address] Information not available 11/12/2023 How Many Years Have You Smoked Tobacco? 0 [email or web address] Information not available 11/12/2023 Sex: Unknown Functional Status Question Answer Note LastModified by Organizat ion Details LastModified Time Do you use any illicit or recreational drugs? No [email or web address] Information not available 11/12/2023 What is your level of alcohol consumption? Occasional [email or web address] Information not available 11/12/2023 Do you or have you ever used smokeless tobacco? Never used smokeless tobacco [email or web address] Information not available 11/12/2023 What is your exercise level? Occasional [email or web address] Information not available 11/12/2023 Mental Status Question Answer Note LastModified by Organization D etails LastModified Time Do you feel stressed (tense, restless, nervous, or anxious, or unable to sleep at night)? 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 Will check some lab work. Will see patient back in 1 week. Patient is followed by Cardiology and will see the Pulmonolog ist in October. Fatigue 31921162 R53.83 see above. Muscle pain 23048332 M79 .10 see above. Body mass index 40+ - severely obese 482041662 Z68.41 [id number] Ai French in, [facility] [employer] [facility] Disease [address] [place] [address] 10/14/2023 09:51:39 10/14/2023 10:31:28 Vitamin D deficiency 96076622 E55.9 Will send in the large dose of Vitamin D3 since levels are low. Patient states he currently takes a daily OTC dose. Counseled on the new dose and how to take once weekly. Counseled on the effects of vitamin d deficiency . Follow up with PCP as needed. Muscle pain 76518580 M79 .10 Lab work discussed with patient. Referral to Results Physiother apy was discussed. Patient does not want the referral. [id number] Anders Stinson Jr, MD [facility] [address] [address] 11/13/2023 08:53:44 11/13/2023 10:24:17 Counseling for elective sterilization done [id number] 04256 Z30.2 43-year-ol d white male in for [...] Landeros Member ID Guarantor Name 03/05/2024 1 [facility] (MEDICAID HMO) Douglas Diaz [id number] Douglas Diaz 03/05/2024 1 [facility] (MEDICAID HMO) Douglas Diaz [id number] Douglas Diaz
--- OUTSIDE RECORDS SUMMARY | 2025-03-13 14:49 | XMS_ITS | Clinical Summary ---
Author Organization [facility] Address [address] [place] [address] Care Team Providers Care Instructional Assistant Name Role Phone Luis Alfredo Rush MD [...] to complete this topic Insurance Care Teams Instructional Assistant Relationship Specialty Start Date End Date Luis Alfredo Rush MD PCP - General Family Medicine 09/27/18
== END 2025-03-13 23:59 | disposition home or self-care (01) ==
LOC: LAB 14:47
PROVIDERS: PCP Nurse Practitioner Family; Visit Provider Nurse Practitioner Family
DX: U09.9 Post COVID-19 condition, unspecified (principal)

== ENCOUNTER 2025-06-20 08:26 | Outpatient (CLI) | payer OTHER, SELFPAY ==
--- OUTSIDE RECORDS SUMMARY | 2025-06-20 08:29 | XMS_ITS | Clinical Summary ---
Author Organization [facility] Address [address] [place] [address] Care Team Providers Care Ux Developer Name Role Phone Luis Alfredo Rush MD [...] ANNUAL PHYSICAL 09/27/2018 HEPATITIS C SCREENING 09/27/2018 INFLUENZA VACCINE 03/17/2025 TDAP/TD VACCINES (2 - Td or Tdap) 12/01/2025 016 Pneumococcal Vaccine 0-49 Aged Out No longer eligible based on patient's age to complete this topic Insurance Care Teams Ux Developer Relationship Specialty Start Date End Date Luis Alfredo Rush MD PCP - General Family Medicine 09/27/18
[2025-06-20 08:47] LABS: Hematocrit 44.8 % (42.0-52.0); Hemoglobin 15.2 g/dL (14.1-18.0); Immature Granulocytes % 0.2 %; Mean Corpuscular HGB Conc 33.9 g/dL (31.8-35.4); Mean Corpuscular Hemoglobin 29.7 pg (27.0-31.2); Mean Corpuscular Volume 87.7 fl (80-94); Nucleated Red Blood Cells % 0 %; Platelet Count 245 K/mm3 (142-424); Red Blood Count 5.11 M/mm3 (4.60-6.20); Red Cell Distribution Width-SD 40.4 fL; White Blood Count 5.0 K/mm3 (4.8-10.8)
[2025-06-20 09:11] LABS: Albumin Level 5.1 g/dl (3.5-5.0)
[2025-06-20 09:12] LABS: Chloride 100 mmol/L (98-107); Potassium 4.5 mmoL/L (3.5-5.1); Sodium 138 mmol/L (136-145)
[2025-06-20 09:14] LABS: Alanine Aminotransferase 51 U/L (12-78); Anion Gap 10.5 mEq/L (5-15); Aspartate Amino Transferase 40 U/L (17-59); Bilirubin,Unconjugated 0.7 mg/dL (0.0-1.1); Carbon Dioxide 32 mmol/L (22.0-30.0); Total Protein,Serum 7.5 g/dl (6.3-8.2)
[2025-06-20 09:15] LABS: Alkaline Phosphatase 89 U/L (38-126); Bilirubin,Direct 0.1 mg/dl (0.0-0.4); Bilirubin,Indirect 0.7 mg/dL (0.0-0.9); Bilirubin,Total 0.8 mg/dl (0.2-1.3); Calcium 9.2 mg/dl (8.4-10.2); Cholesterol 202 mg/dl (140-200); Glucose 100 mg/dl (74-100); HDL Cholesterol 28 mg/dl (40-60); Magnesium 2.1 mg/dl (1.6-2.3); Triglycerides 171 mg/dl (30-150)
[2025-06-20 09:42] LABS: Blood Urea Nitrogen 18 mg/dl (9-20); Creatinine,Serum 0.80 mg/dl (0.66-1.25); Estimated Glomerular Filt Rate 105 ml/min (>60); Free T4 (Free Thyroxine) 0.83 ng/dl (0.78-2.19); GFR (African American) 127 ML/MIN (>60)
[2025-06-20 09:55] LABS: Thyroid Stimulating Hormone 1.06 uIU/mL (0.465-4.68)
== END 2025-06-20 23:59 | disposition home or self-care (01) ==
LOC: LAB 08:27
PROVIDERS: PCP Nurse Practitioner Family; Visit Provider Physician Assistant
DX: I10 Essential (primary) hypertension (principal); R94.31 Abnormal electrocardiogram [ECG] [EKG]; R53.82 Chronic fatigue, unspecified; R93.1 Abnormal findings on diagnostic imaging of heart and coronary circulation
CPT/HCPCS: 36415; 80048; 80061; 80076; 83735; 84439; 84443; 85025; 93225; 93227

== ENCOUNTER 2025-07-03 08:39 | Outpatient (CLI) | payer OTHER, SELFPAY ==
[2025-07-03 09:34] VITALS: BMI 38.2
[2025-07-03 09:41] VITALS: BP 128/77; PULSE 88; RESP 18; TEMP 36.6; O2SAT 96
[2025-07-03] MEDS: METOPROLOL TARTRATE 50MG TABLET PO (09:45)
[2025-07-03] MEDS: IVABRADINE HCL 7.5MG TABLET PO (09:45)
--- NOTE | 2025-07-03 10:00 | CT_ITS ---
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 A noncontrast coronary calcium scan was performed. A CT attenuation threshold of 130 Hounsfield units (HU) was used for the detection of calcium in contiguous voxels of 1 sq mm in area to be counted as individual lesions. Bolus tracking in the ascending aorta with a threshold of 180 HU was performed. Immediately afterwards, ECG synchronized cardiac CT was then performed from the cardiac base to apex using retrospective gating with ECG tube current modulation. A total of 85 mL of Isovue 370 mg/mL contrast medium was administered at 5 mL/sec followed by a saline flush using a biphasic injection protocol. A tube voltage of 120 KVp was used. The patient received the following medications prior to the cardiac CT. 50 mg of oral metoprolol 15 mg of oral ivabradine 0.4 mg of sublingual nitroglycerin The average heart rate at the time of acquisition was 57 bpm and regular. Image Reconstruction Transaxial images were reconstructed at 0.67 mm slide thickness. Data was reviewed interactively on an advanced workstation capable of 2 and 3-dimensional displays in all conventional reconstruction formats, including multiplanar reformations, maximum intensity projections, curved multiplanar reformations, and volume rendered reconstructions. When applicable, selected routine images describing the relevant coronary anatomy and pathology were saved and sent to PACS. Complications None Technical Quality Overall image quality was good. Coronary artery opacification was adequate. Total DLP (Dose-Length Product) is 2731 mGy-cm. The reported value represents the total of one or more individual components during the CT acquisition of this date and at this time, and as such, the same value may appear in more than one CT report depending on the interpreting/reporting physicians. COMPARISON None FINDINGS CT Coronary Calcium Scoring LMA (Left Main Artery) = 0 LAD (Left Anterior Descending) = 0 LCX (Left Coronary Circumflex) = 0 RCA (Right Coronary Artery) = 0 Total Calcium Score = 0 using the AJ-130 method. The interpretation of the calcium heart score is based on the following continuum*: 0 = no calcified plaque detected (risk of coronary artery disease is very low ??? less than 5%) 1-10 = calcium detected in extremely minimal levels (risk of coronary diseases is still low ??? less than 10%) 11-100 = mild levels of plaque detected with certainty (mild or minimal narrowing of heart arteries is likely) 101-400 = definite,at least moderate levels of plaque detected (relatively high risk of a heart attack within 3-5 years) >401-999 = extensive levels of plaque detected (high risk of heart attack, high levels of vascular disease are present, high likelihood of at least one significant coronary narrowing) *The calcium heart score quantifies the burden of coronary calcification/plaque in the coronary arteries. The calcium heart score is not able to evaluate the presence or burden of non-calcified (i.e. soft) plaque. There is no identifiable calcification in the aortic valve, mitral annulus or mitral valve, pericardium, or myocardium. Coronary CT Angiography The coronary arterial system is right dominant. Quantitative Stenosis Grading: Left Main (LM): The left main originates normally from the left sinus of Valsalva. The LM bifurcates into the left anterior descending artery and left circumflex artery. The LM is patent with no evidence of atherosclerosis. Left Anterior Descending (LAD) and Diagonal Branches: The LAD gives off 3 diagonal branch(es). The LAD and its branches are patent with no evidence of atherosclerosis. There is no evidence of LAD-myocardial bridge. Left Circumflex (LCX) and Obtuse Marginals (OM): The LCX gives off 2 Obtuse Marginal (OM) branch(es). The LCX and its branches are patent with no evidence of atherosclerosis. 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 The RCA travels non-intramurally in an interarterial course and gives off a posterior descending artery (PDA) and posterolateral (PL) branches. Notably, the segment located interarterially is narrower anatomically compared to the remainder of the RCA lumen. The RCA and its branches are patent with no evidence of atherosclerosis. Non-Coronary Cardiac Findings: Analysis of the left ventricular (LV) structure and function was performed after 3-D reconstruction of the LV from axial images, with user-corrected automatic contouring for assessment of LV volumes and user-defined reconstruction from oblique planes for measurement of 3-D cardiac structure and function. -The left ventricle systolic function is normal. -There is no left atrial appendage filling defect. Two right pulmonary veins and two left pulmonary veins drain normally into the left atrium. -No pericardial thickening or calcification. -Central and branch pulmonary arteries in the [id number] are unremarkable. -Thoracic aorta within the visualized thoracic aortic-branches in the [id number] is unremarkable. Extracardiac Structures No significant extra-cardiac findings. Note, however, that this study is focused on the cardiac findings. IMPRESSION -Absence of coronary calcification with an Agatston score = 0 using the AJ-130 method. -No evidence of significant flow-limiting atherosclerosis of the coronary arteries. -CAD-RADS 0. Management recommendations per ACC/AHA guidelines*, as clinically appropriate. 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 Notably, the segment located interarterially is narrower anatomically compared to the remainder of the RCA lumen. Further evaluation with exercise nuclear stress testing, as well as rhythm monitoring, to evaluate for ischemia and arrhythmias is suggested. *Recommendations: CAD RADS 0: Reassurance. Consider non-atherosclerotic causes of chest pain. CAD RADS 1: Consider non-atherosclerotic causes of chest pain. Consider preventive therapy and risk factor modification. CAD RADS 2: Consider non-atherosclerotic causes of chest pain. Consider preventive therapy and risk factor modification, particularly for patients with nonobstructive plaque in multiple segments. CAD RADS 3: Consider further functional testing. Consider symptom-guided anti-ischemic and preventive pharmacotherapy as well as risk factor modification per published guideline statements. CAD RADS 4A: Consider further functional testing or invasive coronary angiography with revascularization per published guideline statements. Consider symptom-guided anti-ischemic and preventive pharmacotherapy as well as risk factor modification per published guideline statements. CAD RADS 4B: Invasive coronary angiography recommended with revascularization per published guideline statements. Consider symptom-guided anti-ischemic and preventive pharmacotherapy as well as risk factor modification per published guideline statements. CAD RADS 5: Consider invasive angiography and/or viability assessment with revascularization per published guideline statements. Consider symptom-guided anti-ischemic and preventive pharmacotherapy as well as risk factor modification per published guideline statements. CRITICAL RESULT None COMMUNICATION Per this written report The coronary and cardiac findings of this CCTA were reviewed, reported, and signed by Donell Davidson MD ([employer]) Conclusion Electronically signed by : Mary Ann Davidson MD 07/05/2025 12:42:19
[2025-07-03 11:05] VITALS: BP 135/87; PULSE 65; RESP 18; TEMP 36.6; O2SAT 95
[2025-07-03 11:10] VITALS: BP 119/73; PULSE 63; RESP 18; TEMP 36.6; O2SAT 97
[2025-07-03] MEDS: SODIUM CHLORIDE 0.9% 10ML SYR (RAD ONLY) 10 ML IV (11:12)
[2025-07-03] MEDS: IOPAMIDOL-370 (76%);100ML BOTTLE 94 ML IV (11:12)
[2025-07-03] MEDS: 0.9 % SODIUM CHLORIDE 50 ML VIAL IV (11:12)
== END 2025-07-03 11:21 | disposition home or self-care (01) ==
PROVIDERS: PCP Nurse Practitioner Family; Visit Provider Physician Assistant
DX: Q24.5 Malformation of coronary vessels (principal); I11.9 Hypertensive heart disease without heart failure; R94.31 Abnormal electrocardiogram [ECG] [EKG]; R93.1 Abnormal findings on diagnostic imaging of heart and coronary circulation
CPT/HCPCS: 75574; Q9967

== ENCOUNTER 2025-07-06 10:14 | Outpatient (CLI) | payer OTHER, SELFPAY ==
--- OUTSIDE RECORDS SUMMARY | 2025-07-06 10:56 | XMS_ITS | Clinical Summary ---
Author Organization [facility] Address [address] [place] [address] Care Team Providers Care Photogrammetric Tech Name Role Phone Luis Alfredo Rush MD [...] to complete this topic Insurance Care Teams Photogrammetric Tech Relationship Specialty Start Date End Date Luis Alfredo Rush MD PCP - General Family Medicine 09/27/18
== END 2025-07-06 23:59 | disposition home or self-care (01) ==
LOC: RAD 10:15
PROVIDERS: PCP Nurse Practitioner Family; Visit Provider Physician Assistant
DX: I11.9 Hypertensive heart disease without heart failure (principal); R94.31 Abnormal electrocardiogram [ECG] [EKG]; R93.1 Abnormal findings on diagnostic imaging of heart and coronary circulation